=== PATIENT | male | born 1985 | race Caucasian/White ===

== ENCOUNTER 2016-07-28 12:50 | Outpatient (CLI) | payer MEDICAID | END 2016-07-28 14:48 | disposition home or self-care (01) | LOC: SLEEP 12:50 | PROVIDERS: ATTEND Family Medicine | DX: G47.33 Obstructive sleep apnea (adult) (pediatric) (principal) ==

== ENCOUNTER 2019-03-03 22:45 | Emergency (ER) | payer MEDICAID ==
[~2019-03-03] VITALS: Ht 177 cm; Wt 104.0 kg
[2019-03-04] MEDS ORDERED: RX-DOXYCYCLINE 100 MG (VIBRAMYCIN) TAB PPK#2 PO STA (00:28)
[2019-03-04] MEDS ORDERED: BENZONATATE 100 MG (TESSALON) CAPSULE PO SCH (00:30)
[2019-03-04] MEDS ORDERED: GUAI1TBM19 PO ×2 (00:30→00:56)
[2019-03-04] MEDS ORDERED: DOXY100C42 PO ×2 (00:30→00:56)
[2019-03-04] MEDS ORDERED: BENZ100C18 PO ×2 (00:30→00:56)
--- NOTE | 2019-03-04 00:30 | ED Cough/URI ---
General Chief Complaint: Cough/Cold/Flu Symptoms Stated Complaint: SOA Nursing Triage Note: PT PRESENTS TO THE ED AMBULATORY TO ROOM SEVEN C/O A COUGH AND EXERTIONAL SOB THAT ONSET 3-4 DAYS AGO. PT DENIES FEVER OR CHILLS, DENIES CHEST PAIN, STATES HE HAS BEEN VERY CONGESTED AND HAS HAD DIFFICULTY LYING FLAT WHILE SLEEPING AT NIGHT. Sepsis Screen: No Definite Risk Source: patient History of Present Illness Date Seen by Provider: Mar 03, 2019 Time Seen by Provider: 23:15 Initial Comments PT ARRIVES VIA POV FROM HOME C/O NON-PRODUCTIVE COUGH SINCE Monday02/25/19 NO CHEST PAIN C/O SLIGHT SHORTNESS OF BREATH NO FEVER/SWEATS/CHILLS C/O NASAL CONGESTION AND CLEAR DRAINAGE NO KNOWN SICK CONTACTS. HAS NOT TAKEN ANYTHING FOR SYMPTOMS PT IS NON-SMOKER NO HISTORY OF CHRONIC RESPIRATORY PROBLEMS WENT TO [facility] YESTERDAY, BUT LEFT SHORTLY AFTER ARRIVAL--"DIDN'T WANT TO WAIT" [facility] Allergies and Home Medications Allergies Coded Allergies: No Allergy Information Available (Unverified , 03/04/19) Home Medications Benzonatate 100 Mg Capsule, 1-2 TAB PO TID Prescribed by: BISHNU PORTILLO on 03/04/1953 Doxycycline Monohydrate 100 Mg Capsule, 100 MG PO BID Prescribed by: BISHNU PORTILLO on [birth year]/04/1953 Guaifenesin/Dextromethorphan 1 Each Tbmp.12hr, 1 EACH PO BID Prescribed by: BISHNU PORTILLO on [birth year]04/1953 Patient Home Medication List Home Medication List Reviewed: Yes Review of Systems Review of Systems Constitutional: no symptoms reported; No chills, No fever EENTM: see HPI, nose congestion; No throat pain Respiratory: see HPI, dyspnea on exertion; No orthopnea, No phlegm; short of breath; No stridor, No wheezing Cardiovascular: no symptoms reported; No chest pain, No edema Gastrointestinal: no symptoms reported Genitourinary: no symptoms reported Musculoskeletal: no symptoms reported Skin: no symptoms reported Psychiatric/Neurological: Pre-Existing Deficit (CEREBRAL PALSY WITH LEFT SIDE WEAKNESS, ALSO HAS 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) Past Kuslcsm-Ogmhyr-Bxbrru Hx Patient Social History Alcohol Use: Denies Use Recreational Drug Use: No Smoking Status: Never a Smoker 2nd Hand Smoke Exposure: No Recent Foreign Travel: No Contact w/Someone Who Travel: No Recent Infectious Disease Expo: No Recent Hopitalizations: No Physical Abuse: No Sexual Abuse: No Mistreated: No Fear: No Immunizations Up To Date Tetanus Booster (TDap): Unknown PED Vaccines UTD: Yes Past Medical History Surgeries: Yes (TRACHEOSTOMY D/T STREP--LATER REMOVAL; TECHNICIANS AND TRADES WORKERS SHUNT) Neurological, Tracheostomy Respiratory: Yes (2016--HAD STREP AND WAS HOSPITALIZED AND HAD TEMPORARY TRACH. 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 ) Tonsilitis Cancer: No Psychosocial: No Integumentary: No Blood Disorders: No Physical Exam Vital Signs - First Documented 03/03/19 23:04 Temp 36.7 Pulse 111 Resp 20 B/P (MAP) 181/85 (117) Pulse Ox 98 O2 Delivery Room Air Capillary Refill : Less Than 3 Seconds Height: '" Weight: lbs. oz. kg; 33.00 BMI Method: General Appearance: WD/WN, no apparent distress, obese, other (MALODOROUS) HEENT: other (MILD NASAL MUCOSAL EDEMA, CLEAR POST NASAL DRAINAGE. 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, no motor/sensory deficits, alert, oriented x 3 Skin: normal color, warm/dry Progress/Results/Core Measures Suspected Sepsis Recent Fever Within 48 Hours: No Infection Criteria Present: Suspected New Infection New/Unexplained Altered Menta: No Sepsis Screen: No Definite Risk SIRS Temperature: Pulse: 111 Respiratory Rate: 20 Blood Pressure 181 /85 Mean: 117 Results/Orders Micro Results Microbiology 03/03/19 Influenza Types A,B Antigen (JEANMARIE) - Final, Complete My Orders Orders - BISHNU PORTILLO DO Chest Pa/Lat (2 View) (03/03/19 23:16) Influenza A And B Antigens (03/03/19 23:16) Rx-Doxycycline Tablet (Rx-Vibramycin Tab (03/04/19 00:28) Benzonatate Capsule (Tessalon Perles) (03/04/19 00:30) Vital Signs/I&O 03/03/19 03/03/19 03/04/19 23:04 23:04 00:46 Temp 36.7 36.7 Pulse 111 80 Resp 20 20 B/P (MAP) 181/85 (117) 153/113 (117) Pulse Ox 98 98 O2 Delivery Room Air Room Air Room Air Capillary Refill : Less Than 3 Seconds Blood Pressure Mean: 117 POS Diagnostic Imaging Comments CXR--NO ACUTE PROCESS, PENDING RADIOLOGIST REVIEW Reviewed: Reviewed by Me Departure Impression Primary Impression: Bronchitis Disposition: 01 HOME, SELF-CARE Condition: Stable Departure-Patient Inst. Referrals: GIA VERAS DO (PCP) Primary Care Physician [facility] Patient Instructions: Acute Bronchitis, Adult (DC) Add. Discharge Instructions: LOTS OF CLEAR LIQUIDS TYLENOL AND MOTRIN NEEDED FOR PAIN OR FEVER FOLLOW UP WITH YOUR DR IN 2-3 DAYS IF NO BETTER All discharge instructions reviewed with patient and/or family. Voiced understanding. Scripts Guaifenesin/Dextromethorphan (Mucinex Dm ER 1,200-60 mg Tab) 1 Each Tbmp.12hr 1 EACH PO BID for 10 Days, #20 EA Prov: BISHNU PORTILLO DO 03/04/19 Benzonatate (TESSALON PERLES) 100 Mg Capsule 1-2 TAB PO TID for Cough, #30 CAP Prov: BISHNU PORTILLO DO 03/04/19 Doxycycline Monohydrate (Doxycycline Monohydrate) 100 Mg Capsule 100 MG PO BID, #20 CAP Prov: BISHNU PORTILLO DO 03/04/19 BISHNU PORTILLO DO Mar 04, 2019 00:30 POS
[2019-03-04 00:46] VITALS: BP 153/113
--- NOTE | 2019-03-04 07:12 | Diagnostic Imaging Report ---
INDICATION: Cough and fever. FINDINGS: Frontal and lateral views of the chest demonstrates lungs to be clear. Heart size and vascularity are normal. There are no pleural effusions. Some calcifications are present consistent with a tract from an old ventriculoperitoneal shunt. IMPRESSION: Negative chest. Dictated by: Dictated on workstation # [id number]
== END 2019-03-04 00:46 | disposition home or self-care (01) ==
LOC: EDUNIT# 22:45 → ER 22:46
DX: J40 Bronchitis, not specified as acute or chronic (principal); I10 Essential (primary) hypertension; E78.00 Pure hypercholesterolemia, unspecified; G80.9 Cerebral palsy, unspecified; Z93.0 Tracheostomy status
CPT/HCPCS: 71046; 87804

== ENCOUNTER 2019-09-19 01:40 | Emergency (ER) | payer MEDICAID ==
[~2019-09-19] VITALS: Ht 170 cm; Wt 124.8 kg
[~2019-09-19 01:40] MED LIST: BENZ100C18 PO; DOXY100C42 PO; GUAI1TBM19 PO
--- OUTSIDE RECORDS SUMMARY | 2019-09-19 01:50 | XMS REPORT ---
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 [employer] [facility] [employer] [facility] [address] Address [address] [address] Care Team Providers Care Telecommunications Network Planner Name Role Phone LOWELL, GIA V Unavailable SOWMYA DAN MD Unavailable SWAPNA MANZANO Unavailable Lowell, Gia Unavailable Unavailable Lowell, Gia V Unavailable Unavailable Motley, Albino PCP Lowell, Gia V Unavailable Unavailable Unavailable Unavailable LOWELL, GIA V PCP Motley, Albino Unavailable Unavailable Lowell, Gia V Unavailable Unavailable Motley, Albino Unavailable Unavailable LINDSEY DO, BISHNU K Unavailable Unavailable LOWELL DO, GIA V Unavailable Unavailable Unavailable Unavailable Unavailable Unavailable Unavailable Unavailable Unavailable Unavailable Unavailable Unavailable Allergies Normalized Allergy Reported Date of Reaction(s) Care Provider Facility Allergy Type classification allergen Allergy Onset no information Unclassified No Known Drug no information GIA LOWELL [facility] (1 source.) [facility] ([address]) Allergy to Unclassified no information no information GIA ALONZO LER [place] [facility] ([phone] Bhavya source.) [facility] ([address]) Medications Medication Ingredient Drug Dose Dates Status Sig Sig Care Class(es) (Normalized) (Original) Provid er acetaminoph Acetaminoph no 325 mg no take 1 Tylenol 325 no en 325 mg en information informat capsule by mg oral n jayme oral Translation ion mouth three capsule sara e capsule (1 s: [ times daily 1 capsule by source.) Acetaminoph oral route 3 en 325 MG times a day Oral Capsule] acetaminoph Acetaminoph Histamine-1 06-01-19 Complete take 2 Tyl enol PM no en 500 mg / en / Receptor 17 d tablets by Extra nam e diphenhydrA diphenhydrA Antagonist mouth once Strength MINE MINE daily at 25-500 mg hydrochlori Translation bedtime as oral tablet de 25 mg s: [ needed 06/01/2016 oral tablet Acetaminoph take 2 (1 source.) en 500 MG / tablets by Diphenhydra oral route mine once daily Hydrochlori at bedtime de 25 MG as needed Oral Tablet] acetaminoph Acetaminoph Opioid 08-23-19 Complete take 1 oxycodon e-ac no en 325 mg / en / Agonist 19 d tablet by etaminophen name oxyCODONE oxyCODONE mouth every 5-325 mg hydrochlori Translation four hours oral tablet de 5 mg s: [ as needed 08/22/2018 oral tablet Acetaminoph take 1 (1 source.) en 325 MG / tablet by Oxycodone oral route Hydrochlori every 4 de 5 MG hours as Oral needed Tablet] aspirin 81 Aspirin Platelet 81 mg 10-20-19 Complete take 1 Aspi r-81 81 no mg delayed Translation Aggregation 11 d tablet by mg or al name release s: [ Inhibitor, mouth once tablet,delay oral tablet Aspirin 81 Nonsteroida daily ed release (1 source.) MG Delayed l (DR/EC) Release Anti-inflam 10/19/2010 Oral matory Drug take 1 Tablet] tablet (81 mg) by oral route once daily atenolol 25 Atenolol beta-Adrene 25 mg 06-30-19 no take 1 a tenolol 25 no mg oral Translation rgic 19 informat tablet by mg oral nam e tablet (1 s: [ Dylon ion mouth once tablet source.) Atenolol 25 daily 06/29/2018 MG Oral TAKE 1 Tablet] TABLET BY MOUTH ONCE DAILY baclofen 10 Baclofen gamma-Amino 10 mg 04-25-20 no take 1 b aclofen 10 no mg oral Translation butyric 18 informat tablet by mg oral n jayme tablet (3 s: [ Acid-ergic ion mouth three tablet sources.) Baclofen 10 Agonist times daily 04/25/2018 MG Oral take 1 Tablet] tablet (10 mg) by oral route 3 times per day for 90 days 5 mg 08-08-2011 Completed take baclofen no name - 0.5 10 mg 09-08-2011 tablet oral by tablet mouth 08/08/2011 three times 2 TAKE daily, ONE-HALF then TABLET take 1 BY MOUTH tablet THREE by TIMES mouth DAILY three FOR 3 times DAYS daily THEN ONE TABLET THREE TIMES DAILY benzonatate benzonatate Non-narcoti 03-04-20 Complete no Michael zonatate no 100 mg oral c 19 - d information Discontinued name capsule (2 Antitussive 03-04-20 1-2 ORAL sources.) 19 - Three Times 03-04-20 A Day for 19 March 04, 2019 12:56am (One-Time) 12 hr buPROPion Aminoketone 100 mg 08-23-19 Complete take 1 Wel lbutrin no buPROPion Translation 19 d tablet by SR 100 mg n jayme hydrochlori s: [ 12 HR mouth three oral tablet de 100 mg Bupropion times daily extended extended Hydrochlori release release de 100 MG 08/22/2018 oral tablet Extended take 1 (1 source.) Release tablet by Oral oral route 3 Tablet] times a day cloNIDine cloNIDine Central 0.1 mg 10-13-19 Complete no clon idine no hydrochlori Translation alpha-2 10 d information HCl 0. 1 mg name de 0.1 mg s: [ Adrenergic oral tablet oral tablet Clonidine Agonist 10/12/2009 (1 source.) Hydrochlori take 1 de 0.1 MG tablet by Oral oral route Tablet] 1X in clinic office cyclobenzap cyclobenzap Muscle 10 mg 02-21-20 Complete take 1 cyclobenzapr no rine rine Relaxant 15 - d tablet by ine 10 mg name hydrochlori Translation 06-01-19 mouth twice oral tablet de 10 mg s: [ 17 daily 02/20/2015 oral tablet Cyclobenzap 06/01/2016 (3 rine take 1 sources.) hydrochlori tablet (10 de 10 MG mg) by oral Oral route 2 Tablet] times per day for 30 days 10 mg 10-26-2010 no take 1 cycloben no name information tablet zaprine by 10 mg mouth oral twice tablet daily take 1 tablet (10 mg) by oral route 2 times per day 12 hr Dextrometho Uncompetiti 03-04-20 Complete no Guaifene sin/ no dextrometho rphan / ve 19 - d information Dextromethor name rphan guaiFENesin N-methyl-D- 03-14-20 france hydrobromid aspartate 19 Discontinued e 60 mg / Receptor 1 ORAL Twice guaiFENesin Antagonist, A Day 20 10 1200 mg Sigma-1 March extended Agonist 2018 release 12:56am oral tablet March (2 2018 sources.) diazePAM 2 diazePAM Benzodiazep 2 mg 11-21-19 Complete take 1-2 Valium 2 mg no mg oral Translation ine 12 - d tablets by oral tablet name tablet (1 s: [ 01-04-20 mouth every 11/21/2011 source.) Diazepam 2 12 eight hours 01/04/2012 1-2 MG Oral as needed tabs po q 8 Tablet] for pain hrs/PRN pain diclofenac Diclofenac Nonsteroida 75 mg 12-15-19 Complete take 1 diclofenac no sodium 75 Translation l 13 - d tablet by sodium 75 mg name mg delayed s: [ Anti-inflam 03-19-20 mouth twice oral release Diclofenac matory Drug 13 daily tablet,de lay oral tablet 35 MG Oral ed release (5 Capsule, (DR/EC) sources.) diclofenac 12/14/2012 sodium 75 03/19/2013 mg oral take 1 tablet,lee ann tablet (75 yed release mg) by oral (DR/EC), route 2 Diclofenac times per Sodium 75 day MG Delayed Release Oral Tablet, Pennsaid 1.5 % topical drops, Diclofenac Sodium 15 MG/ML Topical Solution, Voltaren 1 % topical gel, Diclofenac Sodium 0.01 MG/MG Topical Gel] 4 % 11-08-2011 Completed apply Voltaren no name - 4 g 1 % 03-07-2012 topica topical lly gel four times 2 daily 2 apply 4 gram to the affected area(s) by topical route 4 times per day for 30 days 40 drop(s) 03-19-2013 Completed apply Pennsaid no name 40 1.5 % drop(s topical ) drops topica 03/19/20 lly 13 apply four 40 drops times to each daily knee by topical route 4 times per day 35 mg 08-22-2018 no take 1 Zorvolex no name information capsul 35 mg e by oral mouth capsule three take 1 times capsule daily (35 mg) by oral route 3 times per day doxycycline Doxycycline Tetracyclin 03-04-20 Complete no Dox ycycline no monohydrate e-class 19 - d information Monohydrate name 100 mg oral Drug 03-04-20 Discontinued capsule (2 19 - 100 ORAL sources.) 03-04-20 Twice A Day March 04, 2019 12:56am (One-Time) no Fish Oils no 1000 10-13-19 Complete take 1 Fish Oil no information information mg 10 d capsule by 1,000 mg name (1 source.) mouth once oral capsule daily 10/12/2009 take 1 capsule by oral route QD , keep refrigerated furosemide Furosemide Loop 80 mg 10-03-19 no take 1 furos emide no 80 mg oral Translation Diuretic 19 - informat tablet by 80 mg oral name tablet (2 s: [ 12-02-19 ion mouth once tablet sources.) Furosemide 19 daily as 10/02/2018 80 MG Oral needed 12/01/2018 Tablet, TAKE 1 Furosemide TABLET BY 80 MG Oral MOUTH ONCE Tablet] DAILY NEEDED 80 mg 08-22-2018 Completed take 1 Lasix 80 no name - tablet mg oral 09-06-2018 by tablet mouth once 9 daily 09/06/2018 as take 1 needed tablet (80 mg) by oral route once daily prn gabapentin gabapentin Anti-epilep 100 mg 03-19-20 Complete take 1 gabapentin no 100 mg oral Translation tic Agent 13 - d capsule by 100 m g oral name capsule (1 s: [ 04-18-20 mouth twice capsule source.) gabapentin 13 daily 03/19/2013 100 MG Oral 04/18/2013 Capsule] take 1 capsule by oral route 2 times a day for 30 days hydroCHLORO hydroCHLORO Thiazide 10-03-19 Complete take 1 Zestor etic no thiazide 25 thiazide / Diuretic, 10 - d tablet by 20-25 m g name mg / Lisinopril Angiotensin 10-13-19 mouth once oral tab let lisinopril Translation Converting 10 daily 10/02/2009 20 mg oral s: [ Enzyme 10/12/2009 tablet (1 Hydrochloro Inhibitor take 1 source.) thiazide 25 tablet by MG / oral route Lisinopril once daily 20 MG Oral for 60 days Tablet] hydrOXYzine hydrOXYzine Antihistami 75 mg 08-17-19 Complete take 3 hydroxyzine no hydrochlori Translation ne 19 - d tablets by HCl 25 mg name de 25 mg s: [ 08-23-19 mouth at oral tablet oral tablet Hydroxyzine 19 bedtime 08/16/2018 (1 source.) Hydrochlori 08/22/2018 de 25 MG TAKE 3 Oral TABLETS BY Tablet] MOUTH AT BEDTIME ibuprofen Ibuprofen Nonsteroida 800 mg 02-02-20 Complete take 1 ibuprofen no 800 mg oral Translation l 11 d tablet by 800 mg ora l name tablet (1 s: [ Anti-inflam mouth twice tablet source.) Ibuprofen matory Drug daily at 02/01/2011 800 MG Oral mealtime take 1 Tablet] tablet (800 mg) by oral route 2 times per day with food lisinopril Lisinopril Angiotensin 20 mg 06-30-19 no take 1 lisinopril no 20 mg oral Translation Converting 19 informat tablet by 20 m g oral name tablet (2 s: [ Enzyme ion mouth twice tablet sources.) Lisinopril Inhibitor daily 06/29/2018 20 MG Oral TAKE 1 Tablet] TABLET BY MOUTH TWICE DAILY 20 mg 10-18-2009 Completed take 1 lisinopr no name - tablet il 20 mg 10-19-2010 by oral mouth tablet every twelve 0 hours 1 take 1 tablet by oral route every 12 hours lovastatin Lovastatin HMG-CoA 20 mg 07-05-19 no take 1 lova statin no 20 mg oral Translation Reductase 19 informat tablet by 20 mg oral name tablet (1 s: [ Inhibitor ion mouth once tablet source.) Lovastatin daily 07/04/2018 20 MG Oral TAKE 1 Tablet] TABLET BY MOUTH ONCE DAILY meloxicam meloxicam Nonsteroida 15 mg 07-10-19 Complete take 1 meloxicam 15 no 15 mg oral Translation l 13 - d tablet by mg oral na me tablet (1 s: [ Anti-inflam 09-22-19 mouth once tablet source.) meloxicam matory Drug 13 daily 07/09/2012 15 MG Oral 09/21/2012 Tablet] take 1 tablet (15 mg) by oral route daily for 30 days methocarbam Methocarbam Muscle 750 mg 09-22-19 Complete no m ethocarbamo no ol 750 mg ol Relaxant 13 - d information l 750 mg na me oral tablet Translation 01-20-20 oral tablet (1 source.) s: [ 13 09/21/2012 Methocarbam 01/19/2013 ol 750 MG Oral Tablet] no Multivitami no 10-13-19 Complete take 1 Multivitamin no information n Oral information 10 d capsule by Oral Cap marisa name (1 source.) Capsule mouth once 10/12/2009 daily take 1 capsule by oral route once daily naproxen Naproxen Nonsteroida 550 mg 02-01-20 Complete take 1 na proxen no sodium 550 Translation l 11 d tablet by sodium 550 name mg oral s: [ Anti-inflam mouth once mg oral tablet (1 Naproxen matory Drug daily tablet source.) sodium 550 01/31/2011 MG Oral take 1 Tablet] tablet (550 mg) by oral route daily omeprazole Omeprazole Proton Pump 20 mg 07-26-19 Complete take 1 omeprazole no 20 mg Translation Inhibitor 18 - d capsule by 20 mg oral name delayed s: [ 08-23-19 mouth once capsule,lee ann release Omeprazole 19 daily before yed oral 20 MG mealtime release(DR/E capsule (1 Delayed C) 07/25/2017 source.) Release 08/22/2018 Oral take 1 Capsule] capsule (20 mg) by oral route once daily before a meal for 30 days orphenadrin Orphenadrin Muscle 100 mg 06-27-19 Complete take 1 N orflex 100 no e citrate e Relaxant 13 - d tablet by mg 06/27/2012 name 100 mg oral 07-06-19 mouth twice 07/05/2012 1 tablet (1 13 daily tab po BID source.) PARoxetine PARoxetine Serotonin 40 mg 06-30-19 no take 2 pa roxetine no hydrochlori Translation Reuptake 19 informat tablets by HCl 20 mg name de 20 mg s: [ Inhibitor ion mouth once oral table t oral tablet Paroxetine daily 06/29/2018 (1 source.) Hydrochlori TAKE 2 de 20 MG TABLETS BY Oral MOUTH ONCE Tablet] DAILY predniSONE predniSONE no 60 mg 03-14-20 Complete take 3 pre dnisone no 20 mg oral Translation information 18 - d tablets by 20 m g oral name tablet (1 s: [ 04-05-20 mouth once tablet source.) Prednisone 18 daily, then 03/14/2018 20 MG Oral take 2 04/05/2018 Tablet] tablets by Take 3 mouth once tablets daily, then daily x 2 take 1 days, then 2 tablet by tablets mouth once daily x 5 daily, then days, 1 1/2 take 1 tablets tablet by daily x 5 mouth once days, 1 daily, then tablet daily take 0.5 x 5 days, tablet by 1/2 tablet mouth once daily x 5 daily days tiZANidine tiZANidine Central 4 mg 04-19-20 Complete no ti zanidine 4 no 4 mg oral Translation alpha-2 12 - d information mg oral name capsule (1 s: [ Adrenergic 06-27-19 capsule source.) tizanidine Agonist 13 04/19/2012 4 MG Oral 06/27/2012 Capsule] take 1 capsule (4 mg) by oral route for 30 days traMADol traMADol Opioid 100 mg 09-29-19 no take 2 tramadol 50 no hydrochlori Translation Agonist 19 - informat tablets by mg or al name de 50 mg s: [ 10-29-19 ion mouth three tablet oral tablet tramadol 19 times daily 09/28/2018 (2 hydrochlori 10/28/2018 sources.) de 50 MG take 2 Oral tablets by Tablet] oral route 3 times a day for 30 days 100 mg 06-01-2016 Completed take 2 tramadol no name tablet 50 mg s by oral mouth tablet three 06/01/2016 times take 2 daily tablets by oral route 3 times a day Problems Active Problems Problem Normalized Date Last Normalized Normalized Provider Fa cility Classification Problem(s) Recorded Problem Problem Sta tus Duration 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 [address] Physicians degenerative Group (84110) nervous system (Work Phone: conditions ( ) source.) Other nervous Carpal tunnel [facility] system syndrome [address] Physicians disorders (4 Group (74188) sources.) ( ) Paralysis (18 Cerebral palsy Chronic Active Albino [facility] sources.) Translations: [address] Physicians [ Cerebral Group (89559) Palsy, (Work Phone: Infantile ) cerebral palsy; hemiplegic, Infantile cerebral palsy; diplegic] Unclassified Contracture no information Active Albino [employer] (1 source.) deformities [address] Physicians Group (44834) ( ) Other acquired Contract[employer] of Chronic Active Albino Motley [facility] deformities joint, lower [address] Physicians (16 sources.) leg Group (10665) ( ) Other acquired [employer] of Chronic Active [facility] (1 joint, site [address] Physicians source.) unspecified Group (08862) ( ) Mood disorders Depressive Chronic Active Albino Motley [facility] (2 sources.) disorder, not [address] Physicians elsewhere Group (79365) classified (Work Phone: Translations: ) [ Depression, Depression, Depression] Residual Edema Episodic Active Albino Motley [facility] codes; [address] Physicians unclassified Group (49970) (1 source.) ( ) Disorders of Hypercholester Chronic Active [facility] lipid olemia [address] Physicians metabolism (2 Translations: Group (45287) sources.) [ (Work Phone: Hypercholester ) olemia, Hypercholester olemia, Pure hypercholester olemia] Residual Insomnia Episodic Active Albino Mot[facility] codes; [address] Physicians unclassified Group (78808) (1 source.) ( ) Spondylosis; 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 [address] Physicians disc without Group (59726) disorders; myelopathy (Work Phone: other back ) problems (5 sources.) Other Morbid obesity Chronic Active Albino Motley [facility] nutritional; [address] Physicians endocrine; and Group (75311) metabolic (Work Phone: disorders ( ) sources.) Other Obesity, Chronic Active Albino Motley [facility] nutritional; unspecified [address] Physicians endocrine; and Group (31581) metabolic (Work Phone: disorders ( ) source.) Residual Obstructive Chronic Active GIA ETIENNE [facility] V ia codes; sleep apnea DO Bhavya unclassified (adult) Hospital - (6 sources.) (pediatric) [place] ([address]339) Anxiety Other anxiety Chronic Active Albino Motley [facility] disorders (1 states [address] Physicians source.) Group (39181) ( ) Essential Unspecified Chronic [facility] hypertension essential [address] Physicians (9 sources.) hypertension Group (05092) Translations: (Work Phone: [ ) Hypertension, Hypertension, Hypertension] 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[address] Physicians disorders (1 idiopathic Group (39797) source.) peripheral (Work Phone: neuropathy ) Past or Other Problems Problem Normalized Date Last Normalized Normalized Provider Fa cility Classification Problem(s) Recorded Problem Problem Sta tus Duration Abdominal pain Abdominal Episodic Completed [facility] [employer] [facility] (2 sources.) pain, other [address] Physicians specified site Group (86080) ( ) Other nervous Abnormality of Episodic Completed [facility] gait [address] Physicians disorders (16 Group (56731) sources.) ( ) Other Achilles Episodic Com[facility] [place] [address] Physicians tissue disease tendinitis Group (30303) (7 sources.) ( ) Malaise and Other malaise Episodic Com[facility] fatigue (1 and fatigue [address] Physicians source.) Group (87792) ( ) Unclassified [id number] no information Completed [facility] [employer] (1 source.) [id number] [address] Physicians [id number] Group (74275) llness_name_[id number] ( ) Spondylosis; Thoracic or Episodic Completed Albino Motley [employer] intervertebral lumbosacral [address] Physicians disc neuritis or Group (40342) disorders; radiculitis, (Work Phone: other back unspecified ) problems (1 source.) Other eye Unspecified Episodic Completed Albino Motley Apparent disorders (1 [place] [address] Physicians source.) eye movements Group (32161) ( ) Procedures Procedure Normalized Procedure Procedure Result Performer Facility Date 09-18-2009 Blood count complete no information no name [facility] auto&auto difrntl wbc [facility] (57929) ( ) 02-17-2011 Botulinum Toxin no information no name [employer] (Botox), Type A (per Physicians Group unit) (63122) ( ) 02-17-2011 Chemodenervation no information no name Apparent [facility] (56509) ( ) 09-18-2009 Collection venous no information no name Stir blood venipuncture [facility] Group (98231) ( ) 12-14-2012 Comprehensive no information no name [facility] metabolic panel [facility] (67316) ( ) 09-18-2009 Comprehensive no information no name [facility] metabolic panel [facility] (79952) ( ) 06-01-2016 Ct abdomen & pelvis no information no name [facility] w/o contrst 1/> body [facility] re (95220) ( ) 03-03-2019 Diagnostic radiography no information no name [place] [facility] B[facility]ya of chest, [facility] (65776) and lateral 09-18-2009 Ecg routine ecg no information no name [facility] w/least 12 lds w/i&r [facility] Group (32480) ( ) 09-18-2009 Lipid panel no information no name [facility] (16495) ( ) 11-29-2012 Needle emg ea no information no name [facility] extremity w/paraspinl [facility] area limited (84463) ( ) 02-17-2011 Needle emg guid no information no name [facility] w/chemodenervation [facility] (55736) ( ) 11-29-2012 Nerve conduction no information no name [facility] studies - studies [facility] Group (32890) ( ) Immunizations Normalized Immunization Date Notes Care Provider Facili ty Immunization no information 03-04-2019 no information GIA ETIENNE [address] [facility] (85023) Results Test Name Value Interpretation Reference Range Date Time Fa cility (Normalized) (Normalized) (Medline Reference) laboratory on 2019-04-25 Calcium 9.8 mg/dL (N) 8.5 - 10.2 mg/dL Critical access hospital [Mass/Vol] [facility] (95663) Chloride 103 mmol/L (N) 95 - 106 mmol/L [facility] [Moles/Vol] [facility] (85185) CO2 [Moles/Vol] 23 mmol/L (N) 23 - 29 mmol/L [facility] (26003) Creatinine 0.92 mg/dL (N) [facility] [Mass/Vol] [facility] (02601) GFR/1.73 sq M 127 (N) 90 - 120 [facility] predicted among mL/min/{1.73_m2} mL/min/{1.73_m2} Center o f [facility] blacks MDRD [facility] (S/P/Bld) [Vol (92276) rate/Area] GFR/1.73 sq 110 (N) 90 - 120 [facility] Heal th M.predicted MDRD mL/min/{1.73_m2} mL/min/{1.73_m2} [facility] (S/P/Bld) [Vol [facility] rate/Area] (93936) Glucose 85 mg/dL (N) 60 - 125 mg/dL [facility] [Mass/Vol] [facility] (82781) Potassium 4.3 mmol/L (N) 3.7 - 5.2 mmol/L Critical access hospital [Moles/Vol] [facility] (92654) Sodium 136 mmol/L (N) 135 - 145 mmol/L [facility] [Moles/Vol] [facility] (85926) Urea nitrogen 13 mg/dL (N) 7 - 20 mg/dL [facility] [Mass/Vol] [facility] (48885) Urea NOT APPLICABLE (no code) [facility] nitrogen/Creatin [facility] [Mass ratio] [facility] () laboratory on 2019-01-21 Albumin 4.3 g/dL (N) 3.4 - 5.4 g/dL [facility] [Mass/Vol] [facility] (54090) Albumin/Globulin 1.7 {ratio} (N) 1 - 2.5 {ratio} On license of [facility] [Mass ratio] [facility] (07912) ALP [Catalytic 77 U/L (N) 44 - 147 U/L [facility] Health activity/Vol] [facility] (22475) ALT [Catalytic 21 U/L (N) 4 - 40 U/L [facility] ealt activity/Vol] [facility] (92336) AST [Catalytic 20 U/L (N) 10 - 34 U/L [facility] Health activity/Vol] [facility] (86788) Basophils (Bld) 0.05 10*3/uL (N) 0 - 0.3 10*3/uL On license of [facility] [#/Vol] [facility] (12606) Basophils/100 0.6 % (N) 0.5 - 1 % [facility] He alth WBC (Bld) [facility] (99492) Bilirubin 0.6 mg/dL (N) 0.1 - 1.2 mg/dL [facility] [Mass/Vol] [facility] (23771) Calcium 9.6 mg/dL (N) 8.5 - 10.2 mg/dL Critical access hospital [Mass/Vol] [facility] (25229) Chloride 99 mmol/L (N) 95 - 106 mmol/L [facility] [Moles/Vol] [facility] (44741) Cholesterol 192 mg/dL (N) 180 - 200 mg/dL [facility] [Mass/Vol] [facility] (54422) Cholesterol in 32 mg/dL (L) [facility] h HDL [Mass/Vol] [facility] (60827) Cholesterol in 137 mg/dL (H) 0 - 100 mg/dL Critical access hospital LDL [Mass/Vol] [facility] (99678) Cholesterol non 160 mg/dL (H) [facility] HDL [Mass/Vol] [facility] (40280) Cholesterol.tota 6.0 {ratio} (H) [facility] He lt l/Cholesterol in [facility] HDL [Mass ratio] [facility] (47151) CO2 [Moles/Vol] 18 mmol/L (L) 23 - 29 mmol/L [facility] (70247) Creatinine 0.85 mg/dL (N) Formerly [facility] h [Mass/Vol] [facility] (87033) Eosinophils 0.126 10*3/uL (N) 0.05 - 0.5 [facility] He alth (Bld) [#/Vol] 10*3/uL [facility] (46144) Eosinophils/100 1.5 % (N) 1 - 4 % [facility] WBC (Bld) [facility] (52795) Erythrocyte 12.9 % (N) 11.6 - 14.6 % [facility] ealth distribution [facility] width (RBC) [facility] [Ratio] (00855) GFR/1.73 sq M 135 (N) 90 - 120 [facility] predicted among mL/min/{1.73_m2} mL/min/{1.73_m2} [place] o f [facility] blacks MDRD [facility] (S/P/Bld) [Vol (41620) rate/Area] GFR/1.73 sq 116 (N) 90 - 120 [facility] th M.predicted MDRD mL/min/{1.73_m2} mL/min/{1.73_m2} [facility] (S/P/Bld) [Vol [facility] rate/Area] (68619) Globulin (S) 2.6 g/dL (N) 2 - 3.5 g/dL [facility] ealth [Mass/Vol] [facility] (83109) Glucose 98 mg/dL (N) 60 - 125 mg/dL [facility] [Mass/Vol] [facility] (36910) Hematocrit (Bld) 49.4 % (N) 36.1 - 50.3 % [facility] [Volume [facility] (51352) Hemoglobin (Bld) 16.4 g/dL (N) 12.1 - 17.2 g/dL [facility] [Mass/Vol] [facility] (56566) Lymphocytes 1.579 10*3/uL (N) 0.9 - 2.9 [facility] He alth (Bld) [#/Vol] 10*3/uL [facility] (57507) Lymphocytes/100 18.8 % (N) 20 - 40 % [facility] WBC (Bld) [facility] (99475) MCH (RBC) 28.9 pg (N) 27 - 31 [facility] [Entitic mass] [facility] (00517) MCHC (RBC) 33.2 g/dL (N) 32 - 36 g/dL [facility] He alth [Mass/Vol] [facility] (94404) MCV (RBC) 87.1 fL (N) 80 - 100 fL [facility] Hea lt [Entitic vol] [facility] (24855) Monocytes (Bld) 0.571 10*3/uL (N) 0.3 - 0.9 [facility] Health [#/Vol] 10*3/uL [facility] (39175) Monocytes/100 6.8 % (N) 2 - 8 % [facility] WBC (Bld) [facility] (94655) Neutrophils 6.073 10*3/uL (N) 1.7 - 7 10*3/uL [facility] ([facility]ld[facility] [#/Vol] [facility] (19425) Neutrophils/100 72.3 % (N) 40 - 60 % [facility] Health WBC (Bld) [facility] (66418) Platelet mean 11.7 fL (N) 7.2 - 11.7 fL [facility] volume (Bld) [facility] [Entitic vol] [facility] (55405) Platelets (Bld) 281 10*3/uL (N) 150 - 450 [facility] [#/Vol] 10*3/uL [facility] (27539) Potassium 4.8 mmol/L (N) 3.7 - 5.2 mmol/L [facility] [Moles/Vol] [facility] (29852) Protein 6.9 g/dL (N) 6.4 - 8.3 g/dL [facility] [Mass/Vol] [facility] (52025) RBC (Bld) 5.67 10*6/uL (N) 4.2 - 6.1 [facility]ly [facility] lt [#/Vol] 10*6/uL [facility] (87155) Sodium 140 mmol/L (N) 135 - 145 mmol/L [facility] [Moles/Vol] [facility] (45700) Triglyceride 111 mg/dL (N) 0 - 150 mg/dL [facility] [Mass/Vol] [facility] (96591) TSH Qn 0.78 m[IU]/L (N) 0.4 - 4 m[IU]/L [facility] (27127) Urea nitrogen 16 mg/dL (N) 7 - 20 mg/dL [facility] [Mass/Vol] [facility] (43354) Urea NOT APPLICABLE (no code) Formerly [facility] h nitrogen/Creatin [facility] (30377) WBC (Bld) 8.4 10*3/uL (N) 3.5 - 10.5 [facility] [#/Vol] 10*3/uL [facility] (42209) other on 2013-02-22 GFR/1.73 sq mL/min/{1.73_m2} (no code) 90 - 120 02-22-2013 Lab [facility].predicted MDRD mL/min/{1.73_m2} 14:50-0400 [facility] (S/P/Bld) [Vol (44220) (Work rate/Area] ) no information 25 (no code) 02-22-2013 [facility] 14:500 [facility] ([id number]) ( ) no information 118 (no code) 02-22-2013 [facility] 14:50 [facility] (55355) ( ) no information 143 (no code) 02-22-2013 [facility] 14:50 [facility] (75905) ( ) no information >60 (no code) 02-22-2013 [facility] 14:50 [facility] (97164) ( ) metabolic panel on 2013-02-22 Albumin 4.60 g/dL (no code) 3.4 - 5.4 g/dL 02-22-2013 [facility] [Mass/Vol] 14:50 [facility] ([id number]) ( ) ALP [Catalytic 90.0 U/L (no code) 44 - 147 U/L 02-22-2013 [facility] activity/Vol] 14:500 [facility] (96992) ( ) ALT [Catalytic 43.0 U/L (no code) 4 - 40 U/L 02-22-2013 [facility] activity/Vol] 14:50-0400 [facility] ([id number]) ( ) AST [Catalytic 25.0 U/L (no code) 10 - 34 U/L 02-22-2013 [facility] activity/Vol] 14:500400 [facility] (59621) ( ) Bilirubin 0.80 mg/dL (no code) 0.1 - 1.2 mg/dL 02-22-2013 [facility] [Mass/Vol] 14:50 [facility] ([id number]) ( ) Calcium 9.90 mg/dL (no code) 8.5 - 10.2 mg/dL 02-22-2013 [facility] [Mass/Vol] 14:50-0400 [facility] (65099) ( ) Chloride 102.0 mmol/L (no code) 95 - 106 mmol/L 02-22-2013 [facility] [Moles/Vol] 14:50-0400 [facility] (56232) ( ) CO2 [Moles/Vol] 24.0 mmol/L (no code) 23 - 29 mmol/L 02-22-2013 [facility] 14:50-0400 [facility] (45678) ( ) Creatinine 0.80 mg/dL (no code) 02-22-2013 [facility] [Mass/Vol] 14:50-0400 [facility] ([id number]) ( ) Glucose 90.0 mg/dL (no code) 60 - 125 mg/dL 02-22-2013 [facility] [Mass/Vol] 14:50-0400 [facility] (67671) ( ) Potassium 3.80 mmol/L (no code) 3.7 - 5.2 mmol/L 02-22-2013 [facility] [Moles/Vol] 14:50-0400 [facility] ([id number]) ( ) Protein 8.10 g/dL (no code) 6.4 - 8.3 g/dL 02-22-2013 [facility] [Mass/Vol] 14:50-0400 [facility] ([id number]) ( ) Sodium 136.0 mmol/L (no code) 135 - 145 mmol/L 02-22-2013 [facility] [Moles/Vol] 14:50-0400 [facility] (59986) ( ) Urea nitrogen 12.0 mg/dL (no code) 7 - 20 mg/dL 02-22-2013 [facility] [Mass/Vol] 14:50-0400 [facility] (56226) ( ) Vital Signs Vital Sign Value Interpretation Reference Date [facility] (Normalized) (Normalized) Range BMI (Body Mass 46.4 kg/m2 (no code) 15 - 25 kg/m2 10-23-2018 Aa ditya Motley [facility] Index) 12:00-0400 [address] [facility] ([id number]) ( ) BMI (Body Mass 47.94 kg/m2 (no code) 15 - 25 kg/m2 08-22-2018 A yamilet Motley [facility] Index) 13:22-0400 [address] [facility] ([id number]) ( ) BMI (Body Mass 40.72 kg/m2 (no code) 15 - 25 kg/m2 06-01-2016 A yamilet Motley [facility] Index) 15:40-0500 [address] [facility] (61412) ( ) BMI (Body Mass 42.91 kg/m2 (no code) 15 - 25 kg/m2 03-19-2013 A yamilet Motley [facility] Index) 16:13-0500 [address] [facility] (01006) ( ) BMI (Body Mass 44.01 kg/m2 (no code) 15 - 25 kg/m2 11-27-2012 A yamilet Motley [facility] Index) 10:37-0400 [address] [facility] ([id number]) ( ) BMI (Body Mass 44.48 kg/m2 (no code) 15 - 25 kg/m2 09-21-2012 A yamilet Motley [facility] Index) 09:37-0400 [address] [facility] (81272) ( ) BMI (Body Mass 49.26 kg/m2 (no code) 15 - 25 kg/m2 04-10-2012 A yamilet Motley [facility] Index) 11:47-0500 [address] [facility] (65248) ( ) BMI (Body Mass 50.86 kg/m2 (no code) 15 - 25 kg/m2 01-10-2012 A yamilet Motley [facility] Index) 09:54-0400 [address] [facility] (17588) ( ) BMI (Body Mass 50.46 kg/m2 (no code) 15 - 25 kg/m2 11-08-2011 A yamilet Motley [facility] Index) 09:55-0400 [address] [facility] (10821) ( ) BMI (Body Mass 50.46 kg/m2 (no code) 15 - 25 kg/m2 07-08-2011 A yamilet Motley [facility] Index) 11:07-0500 [address] [facility] (44179) ( ) BMI (Body Mass 49.26 kg/m2 (no code) 15 - 25 kg/m2 05-27-2011 A yamilet Motley [facility] Index) 10:01-0500 [address] [facility] ([id number]) ( ) Body 98.2 [degF] (no code) 97.8 - 99.0 10-23-2018 Albino Ve rma [facility] Temperature [degF] 12:00-0400 [address] [facility] ([id number]) ( ) Body 97.6 [degF] (no code) 97.8 - 99.0 08-22-2018 Alb[facility] Ve [facility]ma [facility] Temperature [degF] 13:22-0400 [address] [facility] ([id number]) ( ) Body 97 [degF] (no code) 97.8 - 99.0 06-01-2016 Albino Verm a [facility] Temperature [degF] 15:40-0500 [address] [facility] ([id number]) ( ) Body 98.7 [degF] (no code) 97.8 - 99.0 03-19-2013 Alb[facility] Ve [facility]ma [facility] Temperature [degF] 16:130500 [address] [facility] (39868) ( ) Body 97.6 [degF] (no code) 97.8 - 99.0 12-14-2012 Alb[facility]ma [facility] Temperature [degF] 11:23-0400 [address] [facility] ([id number]) ( ) Body 98.1 [degF] (no code) 97.8 - 99.0 11-27-2012 Alb[facility] Ve [facility]ma [facility] Temperature [degF] 10:37-0400 [address] [facility] (94973) ( ) Body 97.1 [degF] (no code) 97.8 - 99.0 09-21-2012 Alb[facility] Ve [facility]ma [facility] Temperature [degF] 09:37-0400 [address] [facility] (25990) ( ) Body 98.2 [degF] (no code) 97.8 - 99.0 04-10-2012 Alb[facility]ma [facility] Temperature [degF] 11:470500 [address] [facility] (09930) ( ) Body 98 [degF] (no code) 97.8 - 99.0 01-10-2012 Albino Verm a [facility] Temperature [degF] 09:54-0400 [address] [facility] ([id number]) ( ) Body 97.9 [degF] (no code) 97.8 - 99.0 11-08-2011 Alb[facility] Ve [facility]ma [facility] Temperature [degF] 09:55-0400 [address] [facility] (82161) ( ) Body 97.8 [degF] (no code) 97.8 - 99.0 07-08-2011 Albino Ve rma [facility] Temperature [degF] 11:070500 [address] [facility] (20237) ( ) Body 97.2 [degF] (no code) 97.8 - 99.0 05-27-2011 Albino Ve rma [facility] Temperature [degF] 10:010500 [address] [facility] (01401) ( ) Body 97.6 [degF] (no code) 97.8 - 99.0 03-18-2011 Alb[facility] Ve [facility]ma [facility] Temperature [degF] 09:32-0500 [address] [facility] (46152) ( ) Body 97.6 [degF] (no code) 97.8 - 99.0 02-22-2011 Albino Ve rma [facility] Temperature [degF] 12:47-0400 [address] [facility] (78894) ( ) Body 97.8 [degF] (no code) 97.8 - 99.0 01-25-2011 Albino Ve rma [facility] Temperature [degF] 10:53-0400 [address] [facility] (50310) ( ) Body 97.7 [degF] (no code) 97.8 - 99.0 12-28-2010 Alb[facility] Ve [facility]ma [facility] Temperature [degF] 09:24-0400 [address] [facility] (97936) ( ) Body 97.4 [degF] (no code) 97.8 - 99.0 11-23-2010 Albino Ve [facility]ma [facility] Temperature [degF] 09:46-0400 [address] [facility] (97575) ( ) Body 97.6 [degF] (no code) 97.8 - 99.0 10-26-2010 Alb[facility] Ve [facility]ma [facility] Temperature [degF] 10:34-0400 [address] [facility] (76279) ( ) Body 98.1 [degF] (no code) 97.8 - 99.0 10-02-2009 Alb[facility] Ve [facility]ma [facility] Temperature [degF] 13:54-0400 [address] [facility] (19569) ( ) Body 99.1 [degF] (no code) 97.8 - 99.0 09-24-2009 Albino Ve rma [facility] Temperature [degF] 09:090400 [address] [facility] (31559) ( ) Body 98.6 [degF] (no code) 97.8 - 99.0 09-21-2009 Albino Ve rma [facility] Temperature [degF] 10:32-0400 [address] [facility] (07470) ( ) Body 97.6 [degF] (no code) 97.8 - 99.0 09-18-2009 Alb[facility] Ve [facility]ma [facility] Temperature [degF] 15:270400 [address] [facility] (32433) ( ) Body weight 130.41 kg (no code) kg 10-23-2018 Albino Verm a [facility] 12:00-0400 [address] [facility] (49719) ( ) Body weight 134.72 kg (no code) kg 08-22-2018 Albino Verm a [facility] 13:22-0400 [address] [facility] (03219) ( ) Body weight 117.94 kg (no code) kg 06-01-2016 Albino Verm a [facility] 15:40-0500 [address] [facility] (42956) ( ) Body weight 124.29 kg (no code) kg 03-19-2013 Albino Verm a [facility] 16:13-0500 [address] [facility] (96986) ( ) Body weight 127.46 kg (no code) kg 11-27-2012 Albino Verm a [facility] 10:37-0400 [address] [facility] (90421) ( ) Body weight 128.82 kg (no code) kg 09-21-2012 Albino Verm a [facility] 09:37-0400 [address] [facility] (91733) ( ) Body weight 130.18 kg (no code) kg 04-10-2012 Albino Verm a [facility] 11:47-0500 [address] [facility] (07154) ( ) Body weight 134.41 kg (no code) kg 01-10-2012 Albino Verm a [facility] 09:54-0400 [address] [facility] (30243) ( ) Body weight 133.36 kg (no code) kg 11-08-2011 Albino Verm a [facility] 09:55-0400 [address] [facility] (93421) ( ) Body weight 133.36 kg (no code) kg 07-08-2011 Albino Verm a [facility] 11:070500 [address] [facility] (87371) ( ) Body weight 130.18 kg (no code) kg 05-27-2011 Albino Verm a [facility] 10:010500 [address] [facility] (91829) ( ) Body weight 136.08 kg (no code) kg 03-18-2011 Albino Verm a [facility] 09:32-0500 [address] [facility] (36809) ( ) Body weight 133.87 kg (no code) kg 01-25-2011 Albino Verm a [facility] 10:53-0400 [address] [facility] (68575) ( ) Body weight 135.17 kg (no code) kg 12-28-2010 Albino Verm a [facility] 09:24 [address] [facility] (39356) ( ) Body weight 135.63 kg (no code) kg 10-26-2010 Albino Verm a [facility] 10:340400 [address] [facility] (94191) ( ) Body weight 115.33 kg (no code) kg 10-12-2009 Albino Verm a [facility] 11:09 [address] [facility] (46647) ( ) Body weight 114.36 kg (no code) kg 10-02-2009 Albino Verm a [facility] 13:54-0400 [address] [facility] (16975) ( ) Body weight 112.95 kg (no code) kg 09-24-2009 Albino Verm a [facility] 09:09 [address] [facility] (94440) ( ) Body weight 113.85 kg (no code) kg 09-21-2009 Albino Verm a [facility] 10:320400 [address] [facility] (90089) ( ) Body weight 113.4 kg (no code) kg 09-18-2009 Albino Motley [facility] 15:27-0400 [address] [facility] (16656) ( ) Blood Pressure 112/ (no code) Systolic: 90 - 10-23-2018 Aadi yadira Motley [facility] 74mm[Hg] 120 mm[Hg] 12: [address] [facility] (21250) Diastolic: 60 (Work Phone: - 80 mm[Hg] ) Blood Pressure 140/ (no code) Systolic: 90 - 08-22-2019 Aadi yadira Motley [facility] 80mm[Hg] 120 mm[Hg] 13:22-0400 [address] [facility] (14137) Diastolic: 60 (Work Phone: - 80 mm[Hg] ) Blood Pressure 156/ (no code) Systolic: 06-01-2016 Aadi yadira Motley [facility] 84mm[Hg] 120 mm[Hg] 15:40-0500 [address] [facility] (24246) Diastolic: 60 (Work Phone: - 80 mm[Hg] ) Blood Pressure 132/ (no code) Systolic: 03-19-2013 Aadi yadira Motley [facility] 84mm[Hg] 120 mm[Hg] 16:13-0500 [address] [facility] (87763) Diastolic: 60 (Work Phone: - 80 mm[Hg] ) Blood Pressure 155/ (no code) Systolic: 12-14-2012 Aadi yadira Motley [facility] 110mm[Hg] 120 mm[Hg] 11:23-0400 [address] [facility] (47497) Diastolic: 60 (Work Phone: - 80 mm[Hg] ) Blood Pressure 140/ (no code) Systolic: 11-27-2012 Aadi yadira Motley [facility] 104mm[Hg] 120 mm[Hg] 10:37-0400 [address] [facility] (75200) Diastolic: 60 (Work Phone: - 80 mm[Hg] ) Blood Pressure 138/ (no code) Systolic: 09-21-2012 Aadi yadira Motley [facility] 94mm[Hg] 120 mm[Hg] 09:37-0400 [address] [facility] ([id number]) Diastolic: 60 (Work Phone: - 80 mm[Hg] ) Blood Pressure 152/ (no code) Systolic: 04-10-2012 Aadi yadira Motley [facility] 100mm[Hg] 120 mm[Hg] 11:47-0500 [address] [facility] ([id number]) Diastolic: 60 (Work Phone: - 80 mm[Hg] ) Blood Pressure 146/ (no code) Systolic: 01-10-2012 Aadi yadira Motley [facility] 96mm[Hg] 120 mm[Hg] 09:54-0400 [address] [facility] (49043) Diastolic: 60 (Work Phone: - 80 mm[Hg] ) Blood Pressure 144/ (no code) Systolic: 11-08-2011 Aadi yadira Motley [facility] 90mm[Hg] 120 mm[Hg] 09:55-0400 [address] [facility] ([id number]) Diastolic: 60 (Work Phone: - 80 mm[Hg] ) Blood Pressure 146/ (no code) Systolic: 07-08-2011 Aadi yadira Motley [facility] 90mm[Hg] 120 mm[Hg] 11:07-0500 [address] [facility] (78994) Diastolic: 60 (Work Phone: - 80 mm[Hg] ) Blood Pressure 152/ (no code) Systolic: 05-27-2011 Aadi yadira Motley [facility] 94mm[Hg] 120 mm[Hg] 10:01-0500 [address] [facility] ([id number]) Diastolic: 60 (Work Phone: - 80 mm[Hg] ) Blood Pressure 138/ (no code) Systolic: 03-18-2011 Aadi yadira Motley [facility] 96mm[Hg] 120 mm[Hg] 09:32-0500 [address] [facility] ([id number]) Diastolic: 60 (Work Phone: - 80 mm[Hg] ) Blood Pressure 148/ (no code) Systolic: 02-22-2011 Aadi yadira Motley [facility] 102mm[Hg] 120 mm[Hg] 12:47-0400 [address] [facility] ([id number]) Diastolic: 60 (Work Phone: - 80 mm[Hg] ) Blood Pressure 152/ (no code) Systolic: 01-25-2011 Aadi yadira Motley [facility] 98mm[Hg] 120 mm[Hg] 10:53-0400 [address] [facility] (54716) Diastolic: 60 (Work Phone: - 80 mm[Hg] ) Blood Pressure 162/ (no code) Systolic: 12-28-2010 Aadi yadira Motley [facility] 94mm[Hg] 120 mm[Hg] 09:24040 [address] [facility] (56602) Diastolic: 60 (Work Phone: - 80 mm[Hg] ) Blood Pressure 152/ (no code) Systolic: 11-23-2010 Aadi yadira Motley [facility] 84mm[Hg] 120 mm[Hg] 09:46-0400 [address] [facility] (15790) Diastolic: 60 (Work Phone: - 80 mm[Hg] ) Blood Pressure 164/ (no code) Systolic: 10-26-2010 Aadi yadira Motley [facility] 100mm[Hg] 120 mm[Hg] 10:34-0400 [address] [facility] ([id number]) Diastolic: 60 (Work Phone: - 80 mm[Hg] ) Blood Pressure 160/ (no code) Systolic: 10-12-2009 Aadi yadira Motley [facility] 100mm[Hg] 120 mm[Hg] 11:090 [address] [facility] (17400) Diastolic: 60 (Work Phone: - 80 mm[Hg] ) Blood Pressure 164/ (no code) Systolic: 10-02-2009 Aadi yadira Motley [facility] 84mm[Hg] 120 mm[Hg] 14:240400 [address] [facility] (50944) Diastolic: 60 (Work Phone: - 80 mm[Hg] ) Blood Pressure 170/ (no code) Systolic: 10-02-2009 Aadi yadira Motley [facility] 110mm[Hg] 120 mm[Hg] 13:54-0400 [address] [facility] (78640) Diastolic: 60 (Work Phone: - 80 mm[Hg] ) Blood Pressure 130/ (no code) Systolic: 09-24-2009 Aadi yadira [employer] 90mm[Hg] 120 mm[Hg] 09:56-0400 [address] [facility] (90045) Diastolic: 60 (Work Phone: - 80 mm[Hg] ) Blood Pressure 150/ (no code) Systolic: 09-24-2009 Aadi yadira [employer] 100mm[Hg] 120 mm[Hg] 09:09040 [address] [facility] (34157) Diastolic: 60 (Work Phone: - 80 mm[Hg] ) Blood Pressure 154/ (no code) Systolic: 09-21-2009 Aadi ATEM[facility] 100mm[Hg] 120 mm[Hg] 10:32-0400 [address] [facility] (85139) Diastolic: 60 (Work Phone: - 80 mm[Hg] ) Blood Pressure 152/ (no code) Systolic: 09-18-2009 Aadi yadira [employer] 104mm[Hg] 120 mm[Hg] 15:27-0400 [address] [facility] (49768) Diastolic: 60 (Work Phone: - 80 mm[Hg] ) BSA (Body 2.46 m2 (no code) m2 10-23-2018 [facility]) 12:00-0400 [address] [facility] (17897) ( ) BSA (Body 2.5 m2 (no code) m2 08-22-2018 [facility] Surface [facility]) 13:22-0400 [address] [facility] ([id number]) ( ) BSA (Body 2.36 m2 (no code) m2 06-01-2016 [facility]) 15:40-0500 [address] [facility] (53447) ( ) BSA (Body 2.42 m2 (no code) m2 03-19-2013 [facility]) 16:13-0500 [address] [facility] ([id number]) ( ) BSA (Body 2.45 m2 (no code) m2 11-27-2012 [facility]) 10:37-0400 [address] [facility] (87406) ( ) BSA (Body 2.47 m2 (no code) m2 09-21-2012 [facility]) 09:37-0400 [address] [facility] (68124) ( ) BSA (Body 2.42 m2 (no code) m2 04-10-2012 [facility]) 11:47-0500 [address] [facility] (78313) ( ) BSA (Body 2.46 m2 (no code) m2 [facility]-10-2012 [facility] 09:54-0400 [address] [facility] (66536) ( ) BSA (Body 2.45 m2 (no code) m2 11-08-2011 [facility]) 09:55-0400 [address] [facility] (57421) ( ) BSA (Body 2.45 m2 (no code) m2 07-08-2011 [facility]) 11:07-0500 [address] [facility] (63593) ( ) BSA (Body 2.42 m2 (no code) m2 05-27-2011 [facility] 10:01-0500 [address] [facility] (91138) ( ) Height 167.64 cm (no code) cm 10-23-2018 [facility] 12:00-0400 [address] [facility] ([id number]) ( ) Height 167.64 cm (no code) cm 08-22-2018 [facility] 13:22-0400 [address] [facility] (23300) ( ) Height 170.18 cm (no code) cm 06-01-2016 [facility] 15:40-0500 [address] [facility] (43396) ( ) Height 170.18 cm (no code) cm 03-19-2013 [facility] 16:13-0500 [address] [facility] ([id number]) ( ) Height 170.18 cm (no code) cm 12-14-2012 [facility] 11:23-0400 [address] [facility] (30736) ( ) Height 170.18 cm (no code) cm 11-27-2012 [facility] 10:37-0400 [address] [facility] (81849) ( ) Height 170.18 cm (no code) cm 09-21-2012 [facility] 09:37-0400 [address] [facility] (08081) ( ) Height 162.56 cm (no code) cm 04-10-2012 [facility] 11:47-0500 [address] [facility] (28783) ( ) Height 162.56 cm (no code) cm 01-10-2012 [facility] 09:54-0400 [address] [facility] (13105) ( ) Height 162.56 cm (no code) cm 11-08-2011 Albino Motley [facility] 09:55-0400 [address] [facility] (23031) ( ) Height 162.56 cm (no code) cm 07-08-2011 Albino Motley [facility] 11:07-0500 [address] [facility] (80076) ( ) Height 162.56 cm (no code) cm 05-27-2011 Albino Motley [facility] 10:01-0500 [address] [facility] (52063) ( ) Pulse (Heart 89 /min (no code) 60 - 100 /min 10-23-2018 Albino Motley [facility] Rate) 12:00-0400 [address] [facility] (61261) ( ) Pulse (Heart 78 /min (no code) 60 - 100 /min 08-22-2018 Albino Motley [facility] Rate) 13:22-0400 [address] [facility] (24731) ( ) Pulse (Heart 108 /min (no code) 60 - 100 /min 06-01-2016 Albino Motley [facility] Rate) 15:40-0500 [address] [facility] (09021) ( ) Pulse (Heart 88 /min (no code) 60 - 100 /min 03-19-2013 Albino Motley [facility] Rate) 16:13-0500 [address] [facility] (15225) ( ) Pulse (Heart 60 /min (no code) 60 - 100 /min 12-14-2012 Albino Motley [facility] Rate) 11:23-0400 [address] [facility] (76523) ( ) Pulse (Heart 76 /min (no code) 60 - 100 /min 11-27-2012 Albino Mot[facility]) 10:[phone] [facility] ([id number]) ( ) Pulse (Heart 84 /min (no code) 60 - 100 /min 09-21-2012 Albino Mot[facility] Rate) 09:37-0400 [phone] [facility] ([id number]) ( ) Pulse (Heart 68 /min (no code) 60 - 100 /min 04-10-2012 Albino Mot[facility]) 11:47-0500 [phone] [facility] ([id number]) ( ) Pulse (Heart 74 /min (no code) 60 - 100 /min 01-10-2012 Albino Mot[facility]) 09:54-0400 [phone] [facility] ([id number]) ( ) Pulse (Heart 82 /min (no code) 60 - 100 /min 11-08-2011 Albino Molte[facility] Rate) 09:55-0400 [phone] [facility] ([id number]) ( ) Pulse (Heart 80 /min (no code) 60 - 100 /min 07-08-2011 Albino Mot[facility] Rate) 11:07-0500 [phone] [facility] ([id number]) ( ) Pulse (Heart 76 /min (no code) 60 - 100 /min 05-27-2011 Albino Mot[facility] Rate) 10:01-0500 [phone] [facility] ([id number]) ( ) Pulse (Heart 86 /min (no code) 60 - 100 /min 03-18-2011 Albino Motley [facility] Rate) 09:[phone] [facility] ([id number]) ( ) Pulse (Heart 82 /min (no code) 60 - 100 /min 02-22-2011 Albino Mot[facility] Rate) 12:47-0400 [phone] [facility] ([id number]) ( ) Pulse (Heart 84 /min (no code) 60 - 100 /min 01-25-2011 Albino Mot[facility] Rate) 10:53-0400 [phone] [facility] ([id number]) ( ) Pulse (Heart 78 /min (no code) 60 - 100 /min 12-28-2010 Albino Motley [facility] Rate) 09:24-0400 [phone] [facility] ([id number]) ( ) Pulse (Heart 80 /min (no code) 60 - 100 /min 11-23-2010 Albino Motley [facility] Rate) 09:46-0400 [phone] [facility] ([id number]) ( ) Pulse (Heart 78 /min (no code) 60 - 100 /min 10-26-2010 Albino Motley [facility] Rate) 10:34-0400 [phone] [facility] ([id number]) ( ) Pulse (Heart 84 /min (no code) 60 - 100 /min 10-02-2009 Albino Motley [facility] Rate) 13:[phone] [facility] ([id number]) ( ) Pulse (Heart 88 /min (no code) 60 - 100 /min 09-24-2009 Albino Motley [facility] Rate) 09:09-0400 [phone] [facility] ([id number]) ( ) Pulse (Heart 88 /min (no code) 60 - 100 /min 09-21-2009 Albino Motley [facility] Rate) 10:[phone] [facility] ([id number]) ( ) Pulse (Heart 94 /min (no code) 60 - 100 /min 09-18-2009 Albino Motley [facility] Rate) 15:[phone] [facility] ([id number]) ( ) Pulse Oximetry 98 % (no code) 95 - 100 % 10-23-2018 Albino Motley [facility] 12:[phone] [facility] ([id number]) ( ) Pulse Oximetry 90 % (no code) 95 - 100 % 08-22-2018 Albino Motley [facility] 13:[phone] [facility] ([id number]) ( ) Pulse Oximetry 97 % (no code) 95 - 100 % 06-01-2016 Albino Motley [facility] 15:[phone] [facility] ([id number]) ( ) Respiratory 20 /min (no code) 12 - 20 /min 10-23-2018 Albino V aleyda [facility] Rate 12:[phone] [facility] ([id number]) ( ) Respiratory 16 /min (no code) 12 - 20 /min 08-22-2018 Albino V aleyda [facility] Rate 13:22-0400 [phone] [facility] ([id number]) ( ) Respiratory 20 /min (no code) 12 - 20 /min 06-01-2016 Albino V aleyda [facility] Rate 15:40-0500 [address] [facility] ([id number]) ( ) Respiratory 20 /min (no code) 12 - 20 /min 03-19-2013 Albino V aleyda [facility] Rate 16:13-0500 [phone] [facility] ([id number]) ( ) Respiratory 16 /min (no code) 12 - 20 /min 12-14-2012 Albino V aleyda [facility] Rate 11:23-0400 [address] [facility] ([id number]) ( ) Respiratory 16 /min (no code) 12 - 20 /min 09-21-2012 Albino V aleyda [facility] Rate 09:37-0400 [phone] [facility] ([id number]) ( ) Respiratory 16 /min (no code) 12 - 20 /min 04-10-2012 Albino V aleyda [facility] Rate 11:47-0500 [address] [facility] ([id number]) ( ) Respiratory 16 /min (no code) 12 - 20 /min 01-10-2012 Albino V aleyda [facility] Rate 09:[phone] [facility] ([id number]) ( ) Respiratory 16 /min (no code) 12 - 20 /min 11-08-2011 Albino V aleyda [facility] Rate 09:[phone] [facility] ([id number]) ( ) Respiratory 16 /min (no code) 12 - 20 /min 07-08-2011 Albino V aleyda [facility] Rate 11:[phone] [facility] ([id number]) ( ) Respiratory 16 /min (no code) 12 - 20 /min 05-27-2011 Albino V aleyda [facility] Rate 10:[phone] [facility] ([id number]) ( ) Respiratory 16 /min (no code) 12 - 20 /min 03-18-2011 Albino V aleyda [facility] Rate 09:[phone] [facility] ([id number]) ( ) Respiratory 16 /min (no code) 12 - 20 /min 02-22-2011 Albino V aleyda [facility] Rate 12:47-0400 [phone] [facility] ([id number]) ( ) Respiratory 16 /min (no code) 12 - 20 /min 01-25-2011 Albino V aleyda [facility] Rate 10:53-0400 [phone] [facility] ([id number]) ( ) Respiratory 16 /min (no code) 12 - 20 /min 12-28-2010 Albino V aleyda [facility] Rate 09:[phone] [facility] ([id number]) ( ) Respiratory 16 /min (no code) 12 - 20 /min 11-23-2010 Albino V aleyda [facility] Rate 09:46-0400 [phone] [facility] ([id number]) ( ) Respiratory 16 /min (no code) 12 - 20 /min 10-26-2010 Albino V aleyda [facility] Rate 10:[phone] [facility] ([id number]) ( ) Respiratory 16 /min (no code) 12 - 20 /min 10-02-2009 Albino V aleyda [facility] Rate 13:[phone] [facility] ([id number]) ( ) Respiratory 20 /min (no code) 12 - 20 /min 09-24-2009 Labino V aleyda [facility] Rate 09:09-0400 [phone] [facility] ([id number]) ( ) Respiratory 20 /min (no code) 12 - 20 /min 09-21-2009 Albino V aleyda [facility] Rate 10:32-0400 [phone] [facility] ([id number]) ( ) Respiratory 20 /min (no code) 12 - 20 /min 09-18-2009 Albino V aleyda [facility] Rate 15:[phone] [facility] ([id number]) ( ) Interventions No Information Plan of Treatment Normalized Care Care Detail Care Activity Date Care Provider F acility Activity Patient Education Acute Bronchitis, no information GIA ETIENNE [id number] [place] [address] [facility] ([id number]) Patient referral no information no information GIA ETIENNE [phone] [facility] ([id number]) Goals Patient Goal Desired Goal no information no information Social History Normalized Code Original Code Date Value no information no information no information no information no information no information Never smoker no information no information 03-04-2019 Denies Use no information no information 03-04-2019 No no information no information 03-04-2019 Denies no information no information 03-04-2019 Never a Smoker Sex Assigned At Sex Assigned At no information M magdi Functional Status The data below is from unstructured sourcesNo functional status information available.Unknown or Not Available.No Functional Status information availableNo Functional Status information available Mental Status The data below is from unstructured sourcesNo Mental Status Information Available Encounters Encounter Normalized Encounter Encounter Diagnosis Care Provi kaitlin Organization Date Type 03-04-2019 Emergency department no information (no phone) [facility] Emergency Department - patient visit Hospital (no phone) 03-04-2019 03-03-2019 Emergency department no information no name no organization name - patient visit 03-03-2019 07-06-2017 Emergency department no information no name no organization name - patient visit 07-07-2017 07-06-2017 Hospital no information Adam Arteaga (no [facility] - [facility] phone) (no phone) 02-07-2016 Hospital no information Swapna Ahuja Other [facility] Emergency Department (no phone) 10-02-2009 Laboratory no information [facility]ariusz A Raissa [facility] ([facility]) 09-18-2009 Laboratory no information Mariusz A Raissa Other [facility] [employer] [facility] Office (no phone) 10-23-2018 Office outpatient new no information Albino Motley Other [facility] (no 45 minutes phone) 05-31-2016 Office outpatient no information Swapna Ahuja clinic (no visit 15 minutes phone) 07-06-2017 Patient encounter no information no name no or ganization name - 07-07-2017 06-19-2017 Patient encounter no information no name no or ganization name - 06-19-2017 Patient encounter no information no name no organizat ion name 09-05-2019 Patient encounter no information (no phone) [facility] (no phone) 04-25-2019 Patient encounter no information no name no or ganization name procedure 03-20-2019 Patient encounter no information no name no or ganization name procedure 03-02-2019 Patient encounter no information no name no or ganization name procedure 01-21-2019 Patient encounter no information no name no or ganization name procedure 01-21-2019 Patient encounter no information no name no or ganization name procedure 08-22-2018 Patient encounter no information Giageneva Etienne [facility] (no procedure phone) 07-03-2018 Patient encounter no information Gia V Lowell Ot er [facility] Etienne [facility] (no procedure phone) 03-13-2018 Patient encounter no information Gia V Lowell Ot er [facility] Etienne [facility] (no - procedure phone) 03-13-2018 - 03-13-2018 10-17-2017 Patient encounter no information Gia Etienne Ot [facility] Etienne [facility] (no procedure phone) 07-17-2017 Patient encounter no information Gia V Lowell Ot er [facility] Etienne [facility] (no procedure phone) 07-28-2016 Patient encounter no information no name no or ganization name - procedure 07-28-2016 12-11-2015 Patient encounter no information no name no or ganization name procedure 12-11-2015 Patient encounter no information no name no or ganization name procedure 11-16-2015 Patient encounter no information no name no or ganization name - procedure 11-16-2015 11-16-2015 Patient encounter no information no name no or ganization name - procedure 11-16-2015 03-19-2013 Patient encounter no information Virginia Jimenez [facility] (no procedure phone) 12-14-2012 Patient encounter no information Carin Duncan r [facility] (no procedure phone) 11-27-2012 Patient encounter no information Ruel Triana Ot her [facility] (no procedure phone) 09-21-2012 Patient encounter no information Ruel Triana Ot her [facility] (no procedure phone) 04-10-2012 Patient encounter no information Ruel Triana Ot her [facility] (no procedure phone) 01-10-2012 Patient encounter no information Ruel Triana Ot [facility] (no procedure phone) 11-08-2011 Patient encounter no information Ruel Triana Ot her [facility] (no procedure phone) 07-08-2011 Patient encounter no information Ruel Triana Ot her [facility] (no procedure phone) 05-27-2011 Patient encounter no information Ruel Triana [facility] (no procedure phone) 03-18-2011 Patient encounter no information Ruel Triana Ot her [facility] (no procedure phone) 02-22-2011 Patient encounter no information Ruel Triana Ot her [facility] (no procedure phone) 01-25-2011 Patient encounter no information Ruel Triana Ot her [facility] (no procedure phone) 12-28-2010 Patient encounter no information Ruel Triana Ot her [facility] (no procedure phone) 11-23-2010 Patient encounter no information Ruel Triana Ot her [facility] (no procedure phone) 10-26-2010 Patient encounter no information Ruel Triana Ot her [facility] (no procedure phone) 10-12-2009 Patient encounter no information Gia Etienne [facility] procedure (no phone) 10-02-2009 Patient encounter no information Kristie Lua [facility] procedure (no phone) 09-24-2009 Patient encounter no information Lindsay Sheffield Other [facility] procedure (no phone) 09-18-2009 Patient encounter no information Lindsay Sheffield Other [facility] procedure (no phone) 11-29-2012 Procedures no information Virginia Dhillon Other Phys iatry Clinic (no phone) 02-17-2011 Procedures no information Ruel Jimenez P [facility]iatry Clinic (no phone) 07-23-2018 Voided no information Gia Vargasr (no Test Clinic (no phone) phone) 09-21-2009 Voided no information Lindsay Sheffield Other [facility] (no phone) Medical Equipment The data below is from unstructured sourcesNo Medical Equipment Information available Payers Normalized Payer Value Unknown no information ([id number]) Evaluation note Note Type Note Facility Evaluation No Assessments Information Available A [facility] note [facility] ([id number]) Advance Directives Advance Directive Response Recorded Date/Time Advance Directives No No [email or web address] 11:04pm Resuscitation Status Full Code March 03, 2019 11:04pm Discharge Instructions You were admitted to [facility] on 10/25/2014 with a principal diagnosis of SPRAIN ELBOW FOREARM NOS. You were discharged from [facility] on 10/25/2014. Should you have any questions prior to discharge, please contact a member of your healthcare team. If you have left the hospital and have any questions, please contact your primary care physician. Chief Complaint and Reason for Visit Chief Complaint Cough/Cold/Flu Sympt oms Reason for Visit [id number] Additional Source Comments This clinical document has been generated using [employer] software that has been certified by the Office of the National Coordinator for Health Information Technology (ONC 15.99.04.3023.Diam.31.00.0.973456) and the National Committee for Auto Rep[employer] Shop Manager (NCQA, as an eMeasure certified technology). FOR RECORDS PERTAINING TO PATIENTS WHO ARE OR HAVE BEEN ENROLLED IN A CHEMICAL D EPENDENCY/SUBSTANCE ABUSE PROGRAM, SOME INFORMATION MAY BE OMITTED. This clinica l summary was aggregated from multiple sources. Caution should be exercised in using it in the provision of clinical care. This summary normalizes information from multiple sources, and as a consequence, information in this document may ma terially change the coding, format and clinical context of patient data. In arcenio tion, data may be omitted in some cases. CLINICAL DECISIONS SHOULD BE BASED ON T HE PRIMARY CLINICAL RECORDS. [facility]. provides no warranty or guara ntee of the accuracy or completeness of information in this document.The followi ng information is based on time limited clinical information
--- OUTSIDE RECORDS SUMMARY | 2019-09-19 01:50 | XMS REPORT | CCD ---
Author Author ARGELIA WEAVER Organization Unknown Address [address] [place] [address] Care Team Providers Care Online Marketing Analyst Name Role Phone KIARA MORTON, SWAPNA Mckeon Attphys MATILDE JOSE DO Prisurg Allergies Allergy Code Allergy Type Reaction Status No Known Drug Allergies 0 Drug allergy Active Active Medications Unknown or Not Available. Problems Unknown or Not Available. Procedures Procedure Code Procedure Type Date Intubation endotracheal emergency procedure 02848 CPT 02/07/2016 CT MAXILLOFACIAL W/O CONTRAST [id number] [facility] 02/07/2016 CULTURE BLOOD [id number] [facility] 02/07/2016 COMPREHENSIVE METABOLIC PANEL [id number] [facility] 02/07/2016 C REACTIVE PROTEIN [id number] [facility] 016 CBC W/ AUTO DIFF (RFLX MAN DIFF IF IND) [id number] [facility] 02/07/2016 TECH ASSIST HOURLY [id number] [facility] 016 VENTILATOR MGNT INITIAL DAY [id number] [facility] 02/07/2016 TECH ASSIST HOURLY [id number] [facility] 016 ^CBC W/ MANUAL DIFF [id number] [facility] 2015 OXYGEN/HOUR [id number] [facility] 02/07/2016 Results COMPREHENSIVE METABOLIC PANEL - Collect Date/Time: 02/07/2016 13:10 Test Name Code Test Result Test Units Jenny t Ref Range GLUCOSE 2345-7 108 MG/DL L=70 H=1 00 SODIUM 2951-2 134 MEQ/L L=135 H=14 8 POTASSIUM 2823-3 4.5 MEQ/L L=3.5 H =5.3 CHLORIDE 2075-0 97 MEQ/L L=96 H= 110 CO2 2028-9 18 MEQ/L L=22 H=29 BUN 3094-0 29 MG/DL L=8 H=22 CREATININE 2160-0 1.0 MG/DL L=0.6 H=1.6 SGOT/AST 1920-8 19 IU/L L=10 H= 40 SGPT/ALT 1742-6 21 IU/L L=8 H= 54 ALK PHOS 6768-6 103 IU/L L=35 H= 115 TOTAL PROTEIN 2885-2 8.0 G/DL L=5.5 H=8.5 ALBUMIN 1751-7 4.2 G/DL L=3.1 H=5 .4 TOTAL BILI 1975-2 2.9 MG/DL L=0.0 H=1.5 CALCIUM 29706-4 10.1 MG/DL L=8.2 H= 10.6 AGE 30 yrs GFR NonAA 89 GFR AA 108 eGFR >60 N/A eGFR AA* >60 N/A CBC W/ AUTO DIFF (RFLX MAN DIFF IF IND) - Collect Date/Time: 02/07/2016 13:10 Test Name Code Test Result Test Units Jenny t Ref Range WBC 00101-9 28.3 TH/CMM L=4.5 H=1 0.8 RBC 789-8 5.58 ML/CMM L=4.70 H=6. 10 HGB 718-7 16.1 G/DL L=14.0 H=18 .0 HCT 4544-3 46.8 % L=42.0 H=52 .0 MCV 84 FL L=81 H=99 MCH 28.9 PG L=27.0 H=33 .0 MCHC 34.4 G/DL L=31.0 H=36 .0 RDW SD 38 FL L=36 H=50 RDW CV 12.6 % L=0.0 H=14 .8 MPV 11.3 FL L=9.3 H=12 .5 PLT 777-3 206 TH/CMM L=130 H=44 0 NRBC# 0.00 TH/CMM L=0.00 H=0. 00 NRBC% 0.0 /100WBC L=0.0 H=2 .0 %NEUT 86.1 % %LYMP 3.0 % %MONO 9.6 % %EOS 0.0 % %BASO 0.2 % #NEUT 24.34 TH/CMM L=2.10 H=8. 20 #LYMP 0.84 TH/CMM L=0.90 H=5. 20 #MONO 2.72 TH/CMM L=0.16 H=1. 00 #EOS 0.00 TH/CMM L=0.00 H=0. 80 #BASO 0.07 TH/CMM L=0.00 H=0. 20 SEGS 70 % BANDS 20 % LYMPHS 2 % MONOS 8 % MANUAL DIFF SEE BELOW N/A C REACTIVE PROTEIN - Collect Date/Time: 02/07/2016 13:10 Test Name Code Test Result Test Units Jenny t Ref Range C REACTIVE PROTEIN 1987- 38.9 MG/DL L=0 .0 H=1.0 Function Status Unknown or Not Available. History of Immunizations Unknown or Not Available. Plan of Treatment Unknown or Not Available. Social History Smoking Status Code Start Date End Date Never smoker [id number] Vital Signs Unknown or Not Available. Function Status Unknown or Not Available. Goals Unknown or Not Available. ASSESSMENTS Unknown or Not Available. Health Concerns Section Unknown or Not Available.
--- OUTSIDE RECORDS SUMMARY | 2019-09-19 01:51 | XMS REPORT | Continuity of Care Document ---
Demographics Preferred Language Unknown Marital Status Unknown Congregational Affiliation Unknown Race Unknown Ethnic Group Unknown Author Organization Unknown Address Unknown Phone Unavailable Allergies Active Description Code Type Severity Reaction Onset Reported/Identified Relationship to Patient Clinical Status Yes No Known Drug Allergies [id number] N/A N/A Yes No Allergy Information Available G6203 13107 Drug Allergy Unknown N/A 019 Medications There is no data. Problems Date Dx Coded Attending Type Code Diagnosis Diagnosed By 11/16/2015 LOWELL DO, GIA V Ot G47. 33 OBSTRUCTIVE SLEEP APNEA (ADULT) (PEDIATR 12/02/2015 LOWELL DO, GIA V Ot G47. 33 OBSTRUCTIVE SLEEP APNEA (ADULT) (PEDIATR 12/15/2015 LOWELL DO, GIA V Ot G47. 33 OBSTRUCTIVE SLEEP APNEA (ADULT) (PEDIATR 12/25/2015 LOWELL DO, GIA V Ot G47. 33 OBSTRUCTIVE SLEEP APNEA (ADULT) (PEDIATR 07/28/2016 LOWELL DO, GIA V Ot G47. 33 OBSTRUCTIVE SLEEP APNEA (ADULT) (PEDIATR 07/28/2016 LOWELL DO, GIA V Ot G47. 33 OBSTRUCTIVE SLEEP APNEA (ADULT) (PEDIATR 07/29/2016 LOWELL DO, GIA V Ot G47. 33 OBSTRUCTIVE SLEEP APNEA (ADULT) (PEDIATR 03/04/2019 LOEWLL DO, GIA V Ot G47. 33 OBSTRUCTIVE SLEEP APNEA (ADULT) (PEDIATR Procedures There is no data. Results Test Result Range LIPID PANEL - 01/21/19 10:43 CHOLESTEROL, TOTAL 192 mg/dL <200 HDL CHOLESTEROL 32 mg/dL >40 TRIGLYCERIDES 111 mg/dL <150 LDL-CHOLESTEROL 137 mg/dL (calc) NR CHOL/HDLC RATIO 6.0 (calc) <5.0 NON HDL CHOLESTEROL 160 mg/dL (calc) <13 0 Influenza virus A and B antigen detectio n - 03/03/19 23:11 FLU RESULT NEGATIVE FOR INFLUENZA A AND B ANTIGENS BY IA NRG [facility] - 04/25/19 15:53 GLUCOSE 85 mg/dL 65-99 UREA NITROGEN (BUN) 13 mg/dL 7-25 CREATININE 0.92 mg/dL 0.60-1.35 eGFR NON-AFR. [place] 110 mL/min/1.73m2 > OR = 60 eGFR 127 mL/min/1.73m2 > OR = 60 BUN/CREATININE RATIO NOT APPLICABLE (calc) 6-22 SODIUM 136 mmol/L 135-146 POTASSIUM 4.3 mmol/L 3.5-5.3 CHLORIDE 103 mmol/L 98-110 CARBON DIOXIDE 23 mmol/L 20-32 CALCIUM 9.8 mg/dL 8.6-10.3 Encounters ACCT No. Visit Date/Time Discharge Status Pt. Type Provider Facility Loc./Unit Complaint [id number] 06/22/2018 08:51:31 Document Registration [id number] 03/13/2018 14:25:37 Document Registration [id number] 07/06/2017 23:24:12 Document Registration [id number] 07/06/2017 23:17:05 Document Registration [id number] 06/19/2017 12:56:50 Document Registration [id number] 09/05/2019 14:20:00 09/05/2019 23:59: 59 CLS Outpatient [facility] [id number] 04/25/2019 15:00:00 Document Registration [id number] 01/21/2019 09:40:00 Document Registration [id number] 10/23/2018 11:51:05 10/23/2018 23:59: 59 CLS Outpatient Albino Motley [id number] 08/22/2018 10:42:23 08/22/2018 23:59: 59 CLS Outpatient Lowell, Gia V [id number] 07/23/2018 16:41:31 07/23/2018 23:59: 59 CLS Outpatient Lowell, Gia V [id number] 07/03/2018 10:23:52 07/03/2018 23:59: 59 CLS Outpatient Lowell, Gia V [id number] 03/13/2018 14:46:13 03/13/2018 23:59: 59 CLS Outpatient Lowell, Gia V [id number] 10/17/2017 14:53:37 10/17/2017 23:59: 59 CLS Outpatient Lowell, Gai V [id number] 07/21/2017 16:05:57 07/21/2017 23:59: 59 CLS Outpatient Adam Arteaga [id number] 07/17/2017 11:19:59 07/17/2017 23:59: 59 CLS Outpatient Lowell, Gia V [id number] 05/31/2016 16:11:29 05/31/2016 23:59: 59 CLS Outpatient Fazal Ahuja [id number] 02/29/2016 18:21:05 02/29/2016 23:59: 59 CLS Outpatient Fazal Ahuja [id number] 03/03/2019 22:46:00 019 00:46:00 DIS Emergency LINDSEY DOBISHNU Vi a [facility] ER SOA [id number] 07/28/2016 12:50:00 017 14:48:00 DIS Outpatient LOWELL GIA DAVIDSON V [facility] SLEEP WILLIE [id number] 12/11/2015 20:50:00 016 23:59:59 CLS Outpatient LOWELL GIA DAVIDSON V [facility] SLEEP WILLIE,SNORING,HTN [id number] 11/16/2015 10:14:00 016 10:46:00 DIS Outpatient LOWELL GIA DAVIDSON V [facility] SLEEP SNORING,HPN,INSOMNIA,ED S
--- OUTSIDE RECORDS SUMMARY | 2019-09-19 01:51 | XMS REPORT ---
Author Author Miles Ahuja Organization [facility] Address [address] [place], [place] [address] Care Team Providers Care Puncher Name Role Phone Fazal Ahuja PCP Unavailable Bonifacio Etienne V PreferredProvider Unavailable Allergies and Adverse Reactions Name Reaction Notes NO KNOWN DRUG ALLERGIES Plan of Treatment Planned Activity Comments Planned Date Planned Time Plan/Goal CT ABD AND PELVIS W/WO CONTRAST 06/01/2016 12:00 AM Medications Active Name Start Date Estimated Completion Date SIG Co mments lisinopril 20 mg oral tablet sara e 1 tablet (20 mg) by oral route twice a day oxycodone-acetaminophen 5-325 mg oral tablet take 1 tablet by oral route every 4 hours as needed Wellbutrin SR 100 mg oral tablet extended release take 1 tablet by oral route 3 times a day tramadol 50 mg oral tablet take 2 tablets by oral route 3 times a day lovastatin 20 mg oral tablet saar e 1 tablet (20 mg) by oral route once daily with the evening meal diclofenac sodium 35 mg oral TID cyclobenzaprine 10 mg oral tablet take 1 tablet (10 mg) by oral route 2 times per day atenolol 25 mg oral tablet take 1 tablet (25 mg) by oral route once daily Name Start Date Expiration Date SIG Comments baclofen 10 mg oral tablet 08/08/2011 09/08/2011 TAKE ONE-HALF TABLET BY MOUTH THREE TIMES DAILY FOR 3 DAYS THEN ONE TABLET THREE TIMES DAILY Voltaren 1 % topical gel 11/08/2011 03/07/2012 apply 4 gram to the affected area(s) by topical route 4 times per day for 30 days baclofen 10 mg oral tablet 08/08/2011 09/08/2011 TAKE ONE-HALF TABLET BY MOUTH THREE TIMES DAILY FOR 3 DAYS THEN ONE TABLET THREE TIMES DAILY tizanidine 4 mg oral capsule 04/19/2012 06/27/2012 sara e 1 capsule (4 mg) by oral route for 30 days meloxicam 15 mg oral tablet 07/09/2012 09/21/2012 take 1 tablet (15 mg) by oral route daily for 30 days methocarbamol 750 mg oral tablet 09/21/2012 01/19/2013 gabapentin 100 mg oral capsule 03/19/2013 04/18/2013 t ann 1 capsule by oral route 2 times a day for 30 days Discontinued Name Start Date Discontinued Date SIG Comments clonidine HCl 0.1 mg oral tablet 10/12/2009 take 1 tablet by oral route 1X in clinic office Fish Oil 1,000 mg oral capsule 10/12/2009 t ann 1 capsule by oral route QD , keep refrigerated Multivitamin Oral Capsule 10/12/2009 take 1 capsule by oral route once daily Zestoretic 20-25 mg oral tablet 10/02/2009 10/12/2009 take 1 tablet by oral route once daily for 60 days Aspir-81 81 mg oral tablet,delayed release (DR/EC) 10/19/2010 take 1 tablet (81 mg) by oral route once daily lisinopril 20 mg oral tablet 10/18/2009 10/19/2010 sara e 1 tablet by oral route every 12 hours naproxen sodium 550 mg oral tablet 01/31/2011 take 1 tablet (550 mg) by oral route daily Pennsaid 1.5 % topical drops 03/19/2013 edson ly 40 drops to each knee by topical route 4 times per day cyclobenzaprine 10 mg oral tablet 10/26/2010 take 1 tablet (10 mg) by oral route 2 times per day ibuprofen 800 mg oral tablet 02/01/2011 sara e 1 tablet (800 mg) by oral route 2 times per day with food Valium 2 mg oral tablet 11/21/2011 01/04/2012 1-2 tabs po q 8 h rs/PRN pain Norflex 100 mg 06/27/2012 07/05/2012 1 tab po BID diclofenac sodium 75 mg oral tablet,delayed release (DR/EC) 12/14/2012 03/19/2013 take 1 tablet (75 mg) by oral route 2 times per day tramadol 50 mg oral tablet 06/01/2016 take 2 tablets by oral route 3 times a day Tylenol PM Extra Strength 25-500 mg oral tablet 06/01/2016 take 2 tablets by oral route once daily at bedtime as needed cyclobenzaprine 10 mg oral tablet 02/20/2015 06/01/2016 take 1 tablet (10 mg) by oral route 2 times per day for 30 days Problem List Description Status Onset Cerebral Palsy Active Hypertension Active Contracture deformities Active Depression Active Hypercholesterolemia Active Vital Signs Date Time BP-Sys(mm[Hg] BP-Jennifer(mm[Hg]) HR(bpm) RR(rpm) Temp WT HT HC BMI BSA BMI Percentile O2 Sat(%) 06/01/2016 2:40:00 PM 156 mmHg 84 mmHg 108 bpm 20 rpm 97 F 260 lbs 67 in 40.72 kg/m2 2.36 m2 97 % 03/19/2013 3:13:00 PM 132 mmHg 84 mmHg 88 bpm 20 rpm 98.7 F 274 lbs 67 in 42.914 kg/m 2.4239 m 12/14/2012 10:23:00 AM 155 mmHg 110 mmHg 60 bpm 16 rpm 97.6 F 67 in 11/27/2012 9:37:00 AM 140 mmHg 104 mmHg 76 bpm 98.1 F 281 lbs 67 in 44.0104 kg/m 2.4547 m 09/21/2012 8:37:00 AM 138 mmHg 94 mmHg 84 bpm 16 rpm 97.1 F 284 lbs 67 in 44.48 kg/m2 2.47 m2 04/10/2012 10:47:00 AM 152 mmHg 100 mmHg 68 bpm 16 rpm 98.2 F 287 lbs 64 i n 49.2629 kg/m 2.4245 m 01/10/2012 8:54:00 AM 146 mmHg 96 mmHg 74 bpm 16 rpm 98 F 296.312 lbs 64 i n 50.86 kg/m2 2.46 m2 11/08/2011 8:55:00 AM 144 mmHg 90 mmHg 82 bpm 16 rpm 97.9 F 294 lbs 64 in 50.4645 kg/m 2.4539 m 07/08/2011 10:07:00 AM 146 mmHg 90 mmHg 80 bpm 16 rpm 97.8 F 294 lbs 64 in 50.46 kg/m2 2.45 m2 05/27/2011 9:01:00 AM 152 mmHg 94 mmHg 76 bpm 16 rpm 97.2 F 287 lbs 64 in 49.2629 kg/m 2.4245 m 03/18/2011 8:32:00 AM 138 mmHg 96 mmHg 86 bpm 16 rpm 97.6 F 300 lbs 02/22/2011 11:47:00 AM 148 mmHg 102 mmHg 82 bpm 16 rpm 97.6 F 01/25/2011 9:53:00 AM 152 mmHg 98 mmHg 84 bpm 16 rpm 97.8 F 295.125 lbs 12/28/2010 8:24:00 AM 162 mmHg 94 mmHg 78 bpm 16 rpm 97.7 F 298 lbs 11/23/2010 8:46:00 AM 152 mmHg 84 mmHg 80 bpm 16 rpm 97.4 F 10/26/2010 9:34:00 AM 164 mmHg 100 mmHg 78 bpm 16 rpm 97.6 F 299 lbs 10/12/2009 10:09:00 AM 160 mmHg 100 mmHg 254.25 lbs 10/02/2009 1:24:00 PM 164 mmHg 84 mmHg 10/02/2009 12:54:00 PM 170 mmHg 110 mmHg 84 bpm 16 rpm 98.1 F 252.125 lbs 09/24/2009 8:56:00 AM 130 mmHg 90 mmHg 09/24/2009 8:09:00 AM 150 mmHg 100 mmHg 88 bpm 20 rpm 99.1 F 249 lbs 09/21/2009 9:32:00 AM 154 mmHg 100 mmHg 88 bpm 20 rpm 98.6 F 251 lbs 09/18/2009 2:27:00 PM 152 mmHg 104 mmHg 94 bpm 20 rpm 97.6 F 250 lbs Social History Name Description Comments denies alcohol use lives at home Single lives with girlfriend in a house Living with significant other with 3 mon th old child High school graduate Did not serve in Tobacco Never smoker History of Procedures Date Ordered Description Order Status 02/17/2011 12:00 AM Botulinum Toxin (Botox), Type A (per uni t) Reviewed 02/17/2011 12:00 AM GUIDE NERV DESTR NEEDLE EMG Reviewed 02/17/2011 12:00 AM CHEMODENERVATION OF MUSCLE(S ); EXTREMITY(S) AND/OR TRUNK MUSCLE( Reviewed 11/29/2012 12:00 AM MUSC TST DONE W/NERV TST ALVARADO Reviewed 11/29/2012 12:00 AM NRV CNDJ TEST 9-10 STUDIES Reviewed 12/14/2012 12:00 AM COMPREHEN METABOLIC PANEL Reviewed 09/18/2009 12:00 AM ROUTINE VENIPUNCTURE Reviewed 09/18/2009 12:00 AM COMPLETE CBC W/AUTO DIFF WBC Reviewed 09/18/2009 12:00 AM COMPREHEN METABOLIC PANEL Reviewed 09/18/2009 12:00 AM LIPID PANEL Reviewed 09/18/2009 12:00 AM ELECTROCARDIOGRAM COMPLETE Reviewed Results Summary Data and Description Results 02/28/2012 4:09 PM GLUCOSE 84.0 mg/dLSODIUM 137 .0 mmol/LPOTASSIUM 3.90 mmol/LCHLORIDE 102.0 mmol/LCO2 24.0 mmol/LBUN 15.0 mg/dLCREATININE 0.80 mg/dLSGOT/AST 25.0 IU/LSGPT/ALT 38.0 IU/LALK PHOS 109.0 IU/LTOTAL PROTEIN 8.20 g/dLALBUMIN 4.50 g/dLTOTAL BILI 0.50 mg/dLCALCIUM 10.0 mg/dLAGE 24 GFR NonAA 119 GFR AA 144 eGFR 60 eGFR AA* 60 02/22/2013 1:50 PM GLUCOSE 90.0 mg/dLSODIUM 136 .0 mmol/LPOTASSIUM 3.80 mmol/LCHLORIDE 102.0 mmol/LCO2 24.0 mmol/LBUN 12.0 mg/dLCREATININE 0.80 mg/dLSGOT/AST 25.0 IU/LSGPT/ALT 43.0 IU/LALK PHOS 90.0 IU/LTOTAL PROTEIN 8.10 g/dLALBUMIN 4.60 g/dLTOTAL BILI 0.80 mg/dLCALCIUM 9.90 mg/dLAGE 27 GFR NonAA 118 GFR AA 143 eGFR >60 mL/min/1.73 m2eGFR AA* >60 History Of Immunizations Not available. History of Past Illness Name Date of Onset Comments Cerebral Palsy Hypertension Contracture deformities lower extremity Hypertension Sep 18 2009 3:21PM Hypertension Sep 18 2009 3:29PM Hypertension Sep 18 2009 2:40PM Athetoid cerebral palsy Sep 18 2009 2:40PM Hypertension Sep 24 2009 8:17AM Gait Abnormality Sep 24 2009 8:17AM Fatigue Sep 24 2009 8:17AM Strabismus Sep 24 2009 8:17AM Joint Contracture Sep 24 2009 8:17AM Hypertension Oct 02 2009 12:57PM Essential Hypertension Oct 12 2009 10:10AM Depression Hypercholesterolemia Achilles bursitis or tendinitis Oct 26 2010 9:33AM Contracture of joint; lower leg Oct 26 2010 9:33AM Gait Abnormality Oct 26 2010 9:33AM Hemiplegia, Congenital Oct 26 2010 9:33AM Achilles bursitis or tendinitis Nov 23 2010 8:50AM Contracture of joint; lower leg Nov 23 2010 8:50AM Gait Abnormality Nov 23 2010 8:50AM Hemiplegia, Congenital Nov 23 2010 8:50AM Achilles bursitis or tendinitis Dec 28 2010 8:21AM Contracture of joint; lower leg Dec 28 2010 8:21AM Gait Abnormality Dec 28 2010 8:21AM Hemiplegia, Congenital Dec 28 2010 8:21AM Achilles bursitis or tendinitis Jan 25 2011 9:55AM Contracture of joint; lower leg Jan 25 2011 9:55AM Gait Abnormality Jan 25 2011 9:55AM Hemiplegia, Congenital Jan 25 2011 9:55AM Contracture of joint; lower leg Feb 17 2011 4:19PM Diplegia, Congenital Feb 17 2011 4:19PM Achilles bursitis or tendinitis Feb 22 2011 11:44AM Contracture of joint; lower leg Feb 22 2011 11:44AM Gait Abnormality Feb 22 2011 11:44AM Hemiplegia, Congenital Feb 22 2011 11:44AM Achilles bursitis or tendinitis Mar 18 2011 8:34AM Contracture of joint; lower leg Mar 18 2011 8:34AM Gait Abnormality Mar 18 2011 8:34AM Hemiplegia, Congenital Mar 18 2011 8:34AM Radiculopathy, lumbosacral May 27 2011 9:07AM Achilles bursitis or tendinitis May 27 2011 9:07AM Contracture of joint; lower leg May 27 2011 9:07AM Gait Abnormality May 27 2011 9:07AM Hemiplegia, Congenital May 27 2011 9:07AM Contracture of joint; lower leg Jul 08 2011 10:09AM Gait Abnormality Jul 08 2011 10:09AM Hemiplegia, Congenital Jul 08 2011 10:09AM Spondylosis, lumbar Jul 08 2011 10:09AM Spondylosis, lumbar Nov 08 2011 9:02AM Contracture of joint; lower leg Nov 08 2011 9:02AM Gait Abnormality Nov 08 2011 9:02AM Hemiplegia, Congenital Nov 08 2011 9:02AM Spondylosis, lumbar Jan 10 2012 8:56AM Contracture of joint; lower leg Jan 10 2012 8:56AM Gait Abnormality Jan 10 2012 8:56AM Hemiplegia, Congenital Jan 10 2012 8:56AM Spondylosis, lumbar Apr 10 2012 9:02AM Contracture of joint; lower leg Apr 10 2012 9:02AM Gait Abnormality Apr 10 2012 9:02AM Hemiplegia, Congenital Apr 10 2012 9:02AM Spondylosis, lumbar Sep 21 2012 8:39AM Contracture of joint; lower leg Sep 21 2012 8:39AM Gait Abnormality Sep 21 2012 8:39AM Hemiplegia, Congenital Sep 21 2012 8:39AM Contracture of joint; lower leg Nov 27 2012 9:38AM Gait Abnormality Nov 27 2012 9:38AM Hemiplegia, Congenital Nov 27 2012 9:38AM Carpal Tunnel Syndrome Nov 27 2012 9:38AM Contracture of joint; lower leg Dec 14 2012 10:25AM Gait Abnormality Dec 14 2012 10:25AM Hemiplegia, Congenital Dec 14 2012 10:25AM Carpal Tunnel Syndrome Dec 14 2012 10:25AM Hypertension Dec 14 2012 10:25AM Carpal Tunnel Syndrome Nov 29 2012 8:29AM Contracture of joint; lower leg Mar 19 2013 3:22PM Gait Abnormality Mar 19 2013 3:22PM Hemiplegia, Congenital Mar 19 2013 3:22PM Carpal Tunnel Syndrome Mar 19 2013 3:22PM Groin discomfort, left b 2016 2:41PM Groin discomfort, right b 2016 2:41PM Morbid (severe) obesity due to excess calories Jun 01 2016 2:41PM Body mass index (BMI) 40.0-44.9, adult Jun 01 2016 2:41PM Payers Insurance Name Company Name Plan Name Plan Number Policy Number Dave cy Group Number Start Date [facility] e Comm Plan of [id number] N/A [place] Medical Assistance [facility] nayeli Pro [id number] Friday, 2009 History of Encounters Visit Date Visit Type Provider 05/31/2016 Office visit Fazal Ahuja MD 02/07/2016 [facility] Fazal Ahuja MD 03/19/2013 Office visit Virginia Dhillon MD 12/14/2012 Office visit Carin CONNOLLYP 11/29/2012 Procedures Virginia Dhillon MD 11/27/2012 Office visit Ruel Triana MD 09/21/2012 Office visit Ruel Triana MD 04/10/2012 Office visit Ruel Triana MD 01/10/2012 Office visit Ruel Triana MD 11/08/2011 Office visit Ruel Triana MD 07/08/2011 Office visit Ruel Triana MD 05/27/2011 Office visit Ruel Triana MD 03/18/2011 Office visit Ruel Triana MD 02/22/2011 Office visit Ruel Triana MD 02/17/2011 Procedures Ruel Triana MD 01/25/2011 Office visit Ruel Triana MD 12/28/2010 Office visit Ruel Triana MD 11/23/2010 Office visit Ruel Triana MD 10/26/2010 Office visit Ruel Triana MD 10/12/2009 Office visit Bonifacio Etienne DO 10/02/2009 Laboratory Mariusz Haji MD 10/02/2009 Office visit Kristie NAGY 09/24/2009 Office visit Lindsay NAGY 09/21/2009 Voided Lindsay NAGY 09/18/2009 Office visit Lindsay NAGY 09/18/2009 Laboratory Mariusz Haji MD
--- OUTSIDE RECORDS SUMMARY | 2019-09-19 01:51 | XMS REPORT ---
Author Author Miles Motley Organization [facility] Address [address] [place], [place] [address] Care Team Providers Care Spring Fitter Helper Name Role Phone Albino Motley PCP Bonifacio Etienne V PreferredProvider Unavailable Allergies and Adverse Reactions Name Reaction Notes Duexis meloxicam diclofenac sodium bloody stools Plan of Treatment Not available. Medications Active Name Start Date Estimated Completion Date SIG Co mments cyclobenzaprine 10 mg oral tablet take 1 tablet (10 mg) by oral route 2 times per day baclofen 10 mg oral tablet 04/25/2018 take 1 tablet (10 mg) by oral route 3 times per day for 90 days lisinopril 20 mg oral tablet 06/29/2018 TAKE 1 TABLE T BY MOUTH TWICE DAILY paroxetine HCl 20 mg oral tablet 06/29/2018 TAKE 2 T ABLETS BY MOUTH ONCE DAILY atenolol 25 mg oral tablet 06/29/2018 TAKE 1 TABLET BY MOUTH ONCE DAILY lovastatin 20 mg oral tablet 07/04/2018 TAKE 1 TABLE T BY MOUTH ONCE DAILY Tylenol 325 mg oral capsule take 1 capsul e by oral route 3 times a day furosemide 80 mg oral tablet 10/02/2018 12/01/2018 SARA E 1 TABLET BY MOUTH ONCE DAILY NEEDED tramadol 50 mg oral tablet 10/29/2018 11/28/2018 take 2 tablets by oral route 3 times a day for 30 days omeprazole 20 mg oral capsule,delayed release(DR/EC) 11/06/2018 TAKE 1 CAPSULE BY MOUTH ONCE DAILY BEFORE A MEAL celecoxib 200 mg oral capsule 11/07/2018 12/07/2018 ta ke 1 capsule (200 mg) by oral route once daily for 30 days Carafate 1 gram oral tablet 11/07/2018 12/07/2018 take 1 tablet by oral route 4 times a day for 30 days Name Start Date Expiration Date SIG Comments [...] 2 times a day for 30 days prednisone 20 mg oral tablet 03/14/2018 04/05/2018 Sara e 3 tablets daily x 2 days, then 2 tablets daily x 5 days, 1 1/2 tablets daily x 5 days, 1 tablet daily x 5 days, 1/2 tablet daily x 5 days Lasix 80 mg oral tablet 08/22/2018 09/06/2018 take 1 t ablet (80 mg) by oral route once daily prn ondansetron 4 mg oral tablet,disintegrating 11/05/201811/12 Take 1-2 tablets prn nausea Discontinued Name Start Date Discontinued Date SIG [...] 2 times per day for 30 days oxycodone-acetaminophen 5-325 mg oral tablet 07/31 take 1 tablet by oral route every 4 hours as needed Wellbutrin SR 100 mg oral tablet extended release 08/22/2018 take 1 tablet by oral route 3 times a day diclofenac sodium 35 mg oral 08/22/2018 TID omeprazole 20 mg oral capsule,delayed release(DR/EC) 07/25/2017 08/22/2018 take 1 capsule (20 mg) by oral route once daily before a meal for 30 days hydroxyzine HCl 25 mg oral tablet 08/16/2018 08/22/2018 TAKE 3 TABLETS BY MOUTH AT BEDTIME Zorvolex 35 mg oral capsule 10/29/2018 take 1 capsule (35 mg) by oral route 3 times per day meloxicam 15 mg oral tablet 10/30/2018 11/07/2018 take 1 tablet (15 mg) by oral route once daily for 30 days Problem List Description Status Onset Cerebral Palsy Active Hypertension Active Contracture deformities Active Depression Active Hypercholesterolemia Active Vital Signs Date Time BP-Sys(mm[Hg] BP-Jennifer(mm[Hg]) HR(bpm) RR(rpm) Temp WT HT HC BMI BSA BMI Percentile O2 Sat(%) 10/23/2018 11:00:00 AM 112 mmHg 74 mmHg 89 bpm 20 rpm 98.2 F 287.5 lbs 66 i n 46.4032 kg/m 2.4643 m 98 % 08/22/2018 12:22:00 PM 140 mmHg 80 mmHg 78 bpm 16 rpm 97.6 F 297 lbs 66 in 47.94 kg/m2 2.50 m2 90 % 06/01/2016 2:40:00 PM 156 mmHg 84 mmHg 108 bpm 20 rpm 97 F 260 lbs 67 in 40.7213 kg/m 2.3611 m 97 % 03/19/2013 3:13:00 PM 132 mmHg 84 mmHg 88 bpm 20 rpm 98.7 F 274 lbs 67 in 42.91 kg/m2 2.42 m2 12/14/2012 10:23:00 AM 155 mmHg 110 mmHg [...] MUSCLE(S ); EXTREMITY(S) AND/OR TRUNK MUSCLE( Reviewed 06/01/2016 12:[address] ABD & PELV 1/> REGNS Returned 11/29/2012 12:00 AM MUSC TST DONE W/NERV TST ALVARADO Reviewed 11/29/2012 12:00 AM NRV CNDJ TEST 9-10 STUDIES Reviewed 12/14/2012 12:00 AM COMPREHEN METABOLIC PANEL Reviewed 09/18/2009 12:00 AM ROUTINE VENIPUNCTURE Reviewed 09/18/2009 12:00 AM COMPLETE CBC W/AUTO DIFF WBC Reviewed 09/18/2009 12:00 AM COMPREHEN METABOLIC PANEL Reviewed 09/18/2009 12:00 AM LIPID PANEL Reviewed 09/18/2009 12:00 AM ELECTROCARDIOGRAM COMPLETE Reviewed Results Summary Date and Description Results 02/22/2013 1:50 PM GLUCOSE 90.0 mg/dLSODIUM 136 [...] 8:34AM Hemiplegia, Congenital Mar 18 2011 8:34AM Obesity Anxiety Insomnia Neuropathy involving both lower extremities Edema bilateral lower extremities Radiculopathy, lumbosacral May 27 2011 9:07AM Achilles [...] (BMI) 40.0-44.9, adult Jun 01 2016 2:41PM Mechanical low back pain Oct 23 2018 11:08AM Chronic pain syndrome Oct 23 2018 11:08AM Hamstring tightness of both lower extremities Oct 23 2018 11 :08AM Payers Insurance Name Company Name Plan Name Plan Number Policy Number Dave cy Group Number Start Date [facility] e Comm Plan of [id number] N/A [place] Medical Assistance [facility] tan Pro [id number] Friday, 2009 History of Encounters Visit Date Visit Type Provider 10/23/2018 Office visit Albino Motley DO 08/22/2018 Office visit Bonifacio VDada Lowell DO 07/23/2018 Voided Bonifacio V. Lowell DO 07/03/2018 Office visit Bonifacio VDada Lowell DO 03/13/2018 Office visit Bonifacio VDada Lowell DO 10/17/2017 Office visit Bonifacio VDada Lowell DO 07/17/2017 Office visit Bonifacio VDada Lowell DO 07/06/2017 [facility] Adam Arteaga MD 05/31/2016 Office visit Fazal Ahuja MD 02/07/2016 Hospital Fazal Ahuja MD 03/19/2013 Office visit Virginia Dhillon MD 12/14/2012 Office visit Carin NAGY 11/29/2012 Procedures Virginia Dhillon MD 11/27/2012 Office [...]
--- OUTSIDE RECORDS SUMMARY | 2019-09-19 01:51 | XMS REPORT | CCD ---
Author Author ARGELIA CORADO Organization Unknown Address [address] [place] [address] Care Team Providers Care Carbonating Stone Cleaner Name Role Phone LUIS F HESTER MD Attphys LUIS F HESTER MD Prisurg [phone] Allergies Allergy Code Allergy Type Reaction Status No Known Drug Allergies 0 Drug allergy Active Active Medications Unknown or Not Available. Problems Unknown or Not Available. Procedures Unknown or Not Available. Results Unknown or Not Available. Encounters Encounter Diagnosis Diagnosis Code Start Date Open wound in mouth [id number] 02/20/2016 Function Status Unknown or Not Available. History of Immunizations Unknown or Not Available. Social History Smoking Status Code Start Date End Date Never smoker [id number] Vital Signs Unknown or Not Available. Function Status Unknown or Not Available. Goals Unknown or Not Available. ASSESSMENTS Unknown or Not Available. Health Concerns Section Unknown or Not Available.
--- OUTSIDE RECORDS SUMMARY | 2019-09-19 01:51 | XMS REPORT ---
Author Author Miles Motley Organization [facility] Address [address] [place], [place] [address] Care Team Providers Care Supervisor Char House Name Role Phone Albino Motley PCP Bonifacio Etienne V PreferredProvider Unavailable Allergies and Adverse Reactions Name Reaction Notes NO KNOWN DRUG ALLERGIES Plan of Treatment Not available. Medications Active [...] by oral route 3 times a day Zorvolex 35 mg oral capsule take 1 capsule (35 mg) by oral route 3 times per day tramadol 50 mg oral tablet 09/28/2018 10/28/2018 take 2 tablets by oral route 3 times a day for 30 days furosemide 80 mg oral tablet 10/02/2018 12/01/2018 SARA E 1 TABLET BY MOUTH ONCE DAILY NEEDED Name Start Date Expiration Date SIG Comments [...] mg) by oral route once daily prn Discontinued Name Start Date Discontinued Date SIG [...] TAKE 3 TABLETS BY MOUTH AT BEDTIME Problem List Description Status Onset Cerebral Palsy [...] left b 2016 2:41PM Groin discomfort, right Feb 2016 2:41PM Morbid (severe) obesity due to excess calories Jun 01 2016 2:41PM Body mass index (BMI) 40.0-44.9, adult Jun 01 2016 2:41PM Payers Insurance Name Company Name Plan Name Plan Number Policy Number Dave cy Group Number Start Date [facility] e Comm Plan of [id number] N/A [place] Medical Assistance [facility] Rafaelapril Funk [id number] Friday, 2009 History of Encounters Visit Date Visit Type Provider 10/23/2018 Office visit Albino Coxa DO 08/22/2018 Office visit Bonifacio V. Lowell DO 07/23/2018 Voided Bonifacio V. Lowell DO 07/03/2018 Office visit Bonifacio V. Lowell DO 03/13/2018 Office visit Bonifacio V. Lowell DO 10/17/2017 Office visit Bonifacio V. Lowell DO 07/17/2017 Office visit Bonifacio V. Lowell DO 07/06/2017 [facility] Adam Arteaga MD 05/31/2016 Office visit Fazal [...] Ruel Triana MD 10/12/2009 Office visit Bonifacio Vargasr DO 10/02/2009 Laboratory Mariusz Haji MD 10/02/2009 Office visit Kristie NAGY 09/24/2009 Office visit Lindsay NAGY 09/21/2009 Voided Lindsay NAGY 09/18/2009 Office visit Lindsay NAGY 09/18/2009 Laboratory Mariusz Haji MD
--- OUTSIDE RECORDS SUMMARY | 2019-09-19 01:51 | XMS REPORT | CCD ---
Author Author ARGELIA BERG Organization Unknown Address [address] [place] [address] Care Team Providers Care Electronic Page Makeup System Operator Name Role Phone LUIS F HESTER MD Attphys LUIS F HESTER MD Prisurg [phone] Allergies Allergy Code Allergy Type Reaction Status No Known Drug Allergies 0 Drug allergy Active Active Medications Unknown or Not Available. Problems Unknown or Not Available. Procedures Unknown or Not Available. Results Unknown or Not Available. Encounters Encounter Diagnosis Diagnosis Code Start Date Open wound in mouth [id number] 02/20/2016 Function Status Unknown or Not Available. History of Immunizations Unknown or Not Available. Social History Smoking Status Code Start Date End Date Never smoker [id number] Vital Signs Unknown or Not Available. Function Status Unknown or Not Available. Goals Unknown or Not Available. ASSESSMENTS Unknown or Not Available. Health Concerns Section Unknown or Not Available.
[2019-09-19] MEDS ORDERED: LABETALOL HCL 20 MG/4 ML VIAL IV ONE (02:15)
[2019-09-19 02:21] LABS: BASOPHILS % (AUTO) 0 % (0-10); BILIRUBIN,URINE NEGATIVE (NEGATIVE); CLARITY,URINE SL CLOUDY; COLOR,URINE YELLOW; EOSINOPHILS # (AUTO) 0.3 10^3/uL (0.0-0.3); EOSINOPHILS % (AUTO) 3 % (0-10); GLUCOSE, URINE (UA) NEGATIVE (NEGATIVE); HEMATOCRIT 47 % (40-54); HEMOGLOBIN 15.7 G/DL (13.3-17.7); KETONES,URINE NEGATIVE (NEGATIVE); LEUKOCYTE ESTERASE ,URINE NEGATIVE (NEGATIVE); LYMPHOCYTES # (AUTO) 3.1 X 10^3 (1.0-4.0); LYMPHOCYTES % (AUTO) 32 % (12-44); MEAN CORPUSCULAR HEMOGLOBIN 29 PG (25-34); MEAN CORPUSCULAR HGB CONC 34 G/DL (32-36); MEAN CORPUSCULAR VOLUME 86 FL (80-99); MEAN PLATELET VOLUME 11.4 FL (7.4-10.4); MONOCYTES # (AUTO) 1.1 X 10^3 (0.0-1.0); MONOCYTES % (AUTO) 11 % (0-12); NEUTROPHILS # (AUTO) 5.1 X 10^3 (1.8-7.8); NEUTROPHILS % (AUTO) 53 % (42-75); NITRITE,URINE NEGATIVE (NEGATIVE); PLATELET COUNT 231 10^3/uL (130-400); PROTEIN,URINE NEGATIVE (NEGATIVE); RED CELL DISTRIBUTION WIDTH 13.8 % (10.0-14.5); WHITE BLOOD COUNT 9.6 10^3/uL (4.3-11.0)
--- NOTE | 2019-09-19 02:22 | ED General ---
General Stated Complaint: SWELLING OF FEET & LEGS Source of Information: Patient History of Present Illness Date Seen by Provider: September 19, 2019 Time Seen by Provider: 02:00 Initial Comments PT ARRIVES VIA POV FROM HOME C/O BILATERAL LOWER LEG AND FEET SWELLING--CHRONIC PROBLEM FOR " A COUPLE OF YEARS" HAD BEEN PRESCRIBED MEDICATION FOR SWELLING AND HIGH BLOOD PRESSURE AND HIGH CHOLESTEROL IN THE PAST, BUT HAS NOT TAKEN ANY MEDICATIONS FOR " A COUPLE OF YEARS" STATES HE SAW CORRY GRANDA AT [facility] "LAST WEEK" AND WAS STARTED BACK ON MEDICATIONS--PER MED RECONCILIATION, PT WAS PRESCRIBED LISINOPRIL 40 MG, LOVASTATIN 20 MG, LASIX 80 MG, TOPROL XL 50 MG ON 09/05/19 STATES HE WENT THERE BECAUSE THE SWELLING HAD GOTTEN WORSE "A COUPLE OF DAYS BEFORE I SAW HIM" PT WAS ALSO GIVEN RX FOR HYDROCODONE 09/12/19 FOR FOOT AND LEG PAIN DUE TO SWELLING PT STATES HE TOOK A HYDROCODONE AT 1500 YESTERDAY HAS NOT TAKEN ANY OF IS MEDICATIONS TONIGHT. STATES HE HAS A FOLLOW UP APPOINTMENT AT [facility] "SOMETIME IN SEPTEMBER" NO CHEST PAIN NO SHORTNESS OF BREATH NO PALPITATIONS--HR IS 130 ON ARRIVAL--PT IS UNAWARE OF RAPID HEART BEAT NO FEVER/SWEATS/CHILLS NO DIZZINESS OR SYNCOPE NO NAUSEA/VOMITING OR ABDOMINAL PAIN VOIDING A NORMAL AMOUNT PCP: [facility] Allergies and Home Medications Allergies Coded Allergies: No Allergy Information Available (Unverified , 09/19/19) Patient Home Medication List Home Medication List Reviewed: Yes Review of Systems Review of Systems Constitutional: no symptoms reported; No chills, No diaphoresis, No dizziness, No fever EENTM: no symptoms reported Respiratory: no symptoms reported; No cough, No dyspnea on exertion, No orthopnea, No short of breath, No wheezing Cardiovascular: see HPI; No chest pain; edema; No palpitations, No syncope Gastrointestinal: no symptoms reported; No abdominal pain, No nausea, No vomiting Genitourinary: no symptoms reported Musculoskeletal: see HPI Skin: no symptoms reported; No rash Psychiatric/Neurological: No Symptoms Reported; Denies Numbness, Denies Paresthesia, Denies Tingling, Denies Weakness Hematologic/Lymphatic: No Symptoms Reported Immunological/Allergic: no symptoms reported Past Qakgndb-Mvogsb-Xjzvsn Hx Past Med/Social Hx: Reviewed and Corrections made Patient Social History Alcohol Use: Denies Use Recreational Drug Use: No Smoking Status: Never a Smoker 2nd Hand Smoke Exposure: No Recent Foreign Travel: No Contact w/Someone Who Travel: No Recent Hopitalizations: No Immunizations Up To Date Tetanus Booster (TDap): Unknown PED Vaccines UTD: Yes Past Medical History Surgeries: Yes (TRACHEOSTOMY D/T STREP--LATER REMOVAL; UTILITY MECHANIC SHUNT) Neurological, Tracheostomy Respiratory: Yes (2016--HAD STREP AND WAS HOSPITALIZED AND HAD TEMPORARY TRACH. 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 ) Tonsilitis Cancer: No Psychosocial: No Integumentary: No Blood Disorders: No Physical Exam Vital Signs Vital Signs - First Documented 09/19/19 01:50 Temp 37.2 Pulse 124 Resp 20 B/P (MAP) 160/98 (118) Pulse Ox 97 O2 Delivery Room Air Capillary Refill : Height, Weight, BMI Height: '" Weight: lbs. oz. kg; 33.00 BMI Method: General Appearance: No Apparent Distress, Obese, Other (DIRTY, MALODOROUS, FEET HEAVILY CAKED WITH DIRT / DEBRIS / ANIMAL HAIR. DOES NOT APPEAR TO BE IN ANY DISCOMFORT OR DISTRESS. WALKS WITHOUT DIFFICULTY. PLAYING/TEXTING ON PHONE THROUGHOUT ENTIRE STAY. ) HEENT: PERRL/EOMI Neck: Full Range of Motion, Normal Inspection, Non Tender, Supple; No Carotid Bruit Respiratory: Normal Breath Sounds, No Accessory Muscle Use, No Respiratory Distress Cardiovascular: No JVD, No Murmur, Normal Peripheral Pulses, Tachycardia Gastrointestinal: No Organomegaly, Non Tender, Soft Back: No CVA Tenderness Extremity: Normal Capillary Refill, Normal Range of Motion, Non Tender, No Calf Tenderness, Pedal Edema (3+ EDEMA BILATERALLY , WITH ASSOCIATED FAINT ERYTHEMA TO BILATERAL LOWER LEGS AND FEET) Neurologic/Psychiatric: Alert, Oriented x3, No Motor/Sensory Deficits, Normal Mood/Affect, ink maker II-XII Norm as Tested Skin: Normal Color, Warm/Dry; No Petechia, No Rash Progress/Results/Core Measures Suspected Sepsis SIRS Temperature: Pulse: Respiratory Rate: Laboratory Tests 09/19/19 02:12: White Blood Count 9.6 Blood Pressure / Mean: Laboratory Tests 09/19/19 02:12: Creatinine 0.82, INR Comment 1.0, Platelet Count 231, Total Bilirubin 0.3 Results/Orders Lab Results Laboratory Tests Test 09/19/19 02:12 Range/Units White Blood Count 9.6 4.3-11.0 10^3/uL Red Blood Count 5.45 4.35-5.85 10^6/uL Hemoglobin 15.7 13.3-17.7 G/DL Hematocrit 47 40-54 % Mean Corpuscular Volume 86 80-99 FL Mean Corpuscular Hemoglobin 29 25-34 PG Mean Corpuscular Hemoglobin Concent 34 32-36 G/DL Red Cell Distribution Width 13.8 10.0-14.5 % Platelet Count 231 130-400 10^3/uL Mean Platelet Volume 11.4 H 7.4-10.4 FL Neutrophils (%) (Auto) 53 42-75 % Lymphocytes (%) (Auto) 32 12-44 % Monocytes (%) (Auto) 11 0-12 % Eosinophils (%) (Auto) 3 0-10 % Basophils (%) (Auto) 0 0-10 % Neutrophils # (Auto) 5.1 1.8-7.8 X 10^3 Lymphocytes # (Auto) 3.1 1.0-4.0 X 10^3 Monocytes # (Auto) 1.1 H 0.0-1.0 X 10^3 Eosinophils # (Auto) 0.3 0.0-0.3 10^3/uL Basophils # (Auto) 0.0 0.0-0.1 10^3/uL Prothrombin Time 13.7 12.2-14.7 SEC INR Comment 1.0 0.8-1.4 Activated Partial Thromboplast Time 27 24-35 SEC Urine Color YELLOW Urine Clarity SL CLOUDY Urine pH 6.0 5-9 Urine Specific Hye >=1.030 1.016-1.022 Urine Protein NEGATIVE NEGATIVE Urine Glucose (UA) NEGATIVE NEGATIVE Urine Ketones NEGATIVE NEGATIVE Urine Nitrite NEGATIVE NEGATIVE Urine Bilirubin NEGATIVE NEGATIVE Urine Urobilinogen 0.2 < = 1.0 MG/DL Urine Leukocyte Esterase NEGATIVE NEGATIVE Urine RBC (Auto) NEGATIVE NEGATIVE Urine RBC NONE /HPF Urine WBC RARE /HPF Urine Squamous Epithelial Cells RARE /HPF Urine Crystals NONE /LPF Urine Bacteria NEGATIVE /HPF Urine Casts NONE /LPF Urine Mucus NEGATIVE /LPF Urine Culture Indicated NO Sodium Level 137 135-145 MMOL/L Potassium Level 3.9 3.6-5.0 MMOL/L Chloride Level 104 98-107 MMOL/L Carbon Dioxide Level 22 21-32 MMOL/L Anion Gap 11 5-14 MMOL/L Blood Urea Nitrogen 13 7-18 MG/DL Creatinine 0.82 0.60-1.30 MG/DL Estimat Glomerular Filtration Rate > 60 BUN/Creatinine Ratio 16 Glucose Level 107 H 70-105 MG/DL Calcium Level 8.8 8.5-10.1 MG/DL Corrected Calcium 8.9 8.5-10.1 MG/DL Magnesium Level 2.0 1.6-2.4 MG/DL Total Bilirubin 0.3 0.1-1.0 MG/DL Aspartate Amino Transf (AST/SGOT) 19 5-34 U/L Alanine Aminotransferase (ALT/SGPT) 29 0-55 U/L Alkaline Phosphatase 86 40-136 U/L Troponin I < 0.028 <0.028 NG/ML B-Type Natriuretic Peptide < 10.0 <100.0 PG/ML Total Protein 6.9 6.4-8.2 GM/DL Albumin 3.9 3.2-4.5 GM/DL Urine Opiates Screen NEGATIVE NEGATIVE Urine Oxycodone Screen NEGATIVE NEGATIVE Urine Methadone Screen NEGATIVE NEGATIVE Urine Propoxyphene Screen NEGATIVE NEGATIVE Urine Barbiturates Screen NEGATIVE NEGATIVE Ur Tricyclic Antidepressants Screen NEGATIVE NEGATIVE Urine Phencyclidine Screen NEGATIVE NEGATIVE Urine Amphetamines Screen NEGATIVE NEGATIVE Urine Methamphetamines Screen NEGATIVE NEGATIVE Urine Benzodiazepines Screen NEGATIVE NEGATIVE Urine Cocaine Screen NEGATIVE NEGATIVE Urine Cannabinoids Screen NEGATIVE NEGATIVE My Orders Orders - BISHNU PORTILLO DO Ed Iv/Invasive Line Start (09/19/19 02:05) Ekg Tracing (09/19/19 02:05) Monitor-Rhythm Ecg Trace Only (09/19/19 02:05) BNP (09/19/19 02:05) Cbc With Automated Diff (09/19/19 02:05) Comprehensive Metabolic Panel (09/19/19 02:05) Drug Screen Stat (Urine) (09/19/19 02:05) Magnesium (09/19/19 02:05) Protime With Inr (09/19/19 02:05) Partial Thromboplastin Time (09/19/19 02:05) Ua Culture If Indicated (09/19/19 02:05) Troponin I (09/19/19 02:05) Chest Pa/Lat (2 View) (09/19/19 02:05) Labetalol Injection (Normodyne Injection (09/19/19 02:15) Ct Angio Chest W (09/19/19 02:43) Iohexol Injection (Omnipaque 350 Mg/Ml 1 (09/19/19 03:00) Received Contrast (Hold Metformin- Contr (09/19/19 03:00) Ns (Ivpb) (Sodium Chloride 0.9% Ivpb Bag (09/19/19 03:00) Furosemide Injection (Lasix Injection) (09/19/19 03:45) Potassium Chloride (Tablet) (K Dur Table (09/19/19 03:45) Medications Given in ED Current Medications Medications Dose Ordered Sig/Will Route Start Time Stop Time Status Last Admin Dose Admin Iohexol 125 ml ONCE ONCE IV 09/19/19 03:00 09/19/19 03:28 DC 09/19/19 03:17 125 ML Labetalol HCl 20 mg ONCE ONCE IV 09/19/19 02:15 09/19/19 02:16 DC 09/19/19 02:26 20 MG Sodium Chloride 80 ml ONCE ONCE IV 09/19/19 03:00 09/19/19 03:28 DC 09/19/19 03:17 80 ML Vital Signs/I&O 09/19/19 09/19/19 01:50 02:45 Temp 37.2 Pulse 124 103 Resp 20 20 B/P (MAP) 160/98 (118) 148/83 (104) Pulse Ox 97 100 O2 Delivery Room Air Capillary Refill : Progress Note : Progress Note GIVEN LABETALOL FOR TACHYCARDIA WELL ELEVATED BLOOD PRESSURE--BOTH LOWERED WITH LABETALOL UNEVENTFUL ER STAY ECG Initial ECG Impression Date: September 19, 2019 Initial ECG Impression Time: 02:18 Initial ECG Rate: 124 Initial ECG Rhythm: S.Tach Diagnostic Imaging Comments CXR--NO ACUTE PROCESS, UTILITY MECHANIC SHUNT IN PLACE, PENDING RADIOLOGIST REVIEW CT CHEST ANGIOGRAM--NO P.E. OR ACUTE PROCESS, [place] [facility] [place] [id number] Reviewed: Reviewed by Me Departure Impression Primary Impression: DEPENDENT LEG EDEMA Additional Impressions: HTN (hypertension) Sinus tachycardia Disposition: HOME, SELF-CARE Condition: Stable Departure-Patient Inst. Referrals: [facility] (PCP) Primary Care Physician RANDI GRANDA (Family) Primary Care Physician Patient Instructions: Controlling Your Blood Pressure Through Lifestyle, DASH Diet, Dependent Edema (DC), Heart Healthy Diet, High Blood Pressure (DC), Low Salt Diet, Tachycardia (DC) Add. Discharge Instructions: TAKE YOUR MEDICATIONS EXACTLY PRESCRIBED--DO NOT MISS DOSES ELEVATE LEGS MUCH POSSIBLE 2 GRAM SODIUM DIET, LOW FAT DIET FOLLOW UP WITH [facility] IN THE NEXT FEW DAYS FOR FURTHER CARE BISHNU PORTILLO DO September 19, 2019 02:22
[2019-09-19 02:30] LABS: BACTERIA,URINE NEGATIVE /HPF; SQUAMOUS EPITHELIAL CELL,UR RARE /HPF; WBC,URINE RARE /HPF
[2019-09-19 02:32] LABS: ALBUMIN 3.9 GM/DL (3.2-4.5); CHLORIDE 104 MMOL/L (98-107); POTASSIUM 3.9 MMOL/L (3.6-5.0); PROTHROMBIN TIME PATIENT 13.7 SEC (12.2-14.7); SODIUM 137 MMOL/L (135-145)
[2019-09-19 02:33] LABS: CALCIUM 8.8 MG/DL (8.5-10.1)
[2019-09-19 02:34] LABS: GLUCOSE 107 MG/DL (70-105)
[2019-09-19 02:35] LABS: AMPHETAMINE SCREEN, URINE NEGATIVE (NEGATIVE); BARBITURATE SCREEN URINE NEGATIVE (NEGATIVE); BENZODIAZEPINES SCREEN URINE NEGATIVE (NEGATIVE); CANNABINOID SCREEN, URINE NEGATIVE (NEGATIVE); COCAINE SCREEN URINE NEGATIVE (NEGATIVE); METHADONE STAT NEGATIVE (NEGATIVE); METHAMPHETAMINE SCREEN URINE S NEGATIVE (NEGATIVE); OPIATE SCREEN URINE NEGATIVE (NEGATIVE); OXYCODONE STAT NEGATIVE (NEGATIVE); PROPOXYPHENE STAT NEGATIVE (NEGATIVE); TOTAL PROTEIN 6.9 GM/DL (6.4-8.2); TRICYCLIC ANTIDEPRESSANTS SCRE NEGATIVE (NEGATIVE)
[2019-09-19 02:36] LABS: BILIRUBIN,TOTAL 0.3 MG/DL (0.1-1.0); CARBON DIOXIDE 22 MMOL/L (21-32)
[2019-09-19 02:38] LABS: ALKALINE PHOSPHATASE 86 U/L (40-136); CREATININE SERUM 0.82 MG/DL (0.60-1.30); GFR ESTIMATED > 60
[2019-09-19 02:39] LABS: BUN/CREATININE RATIO 16
[2019-09-19 02:41] LABS: ALANINE AMINOTRANSFERASE 29 U/L (0-55)
[2019-09-19] MEDS ORDERED: HYDR-4342 (02:41)
[2019-09-19] MEDS ORDERED: LOVA20TA2 (02:41)
[2019-09-19] MEDS ORDERED: METO50TA7 (02:41)
[2019-09-19] MEDS ORDERED: FURO80TA3 (02:41)
[2019-09-19] MEDS ORDERED: LISI40TA (02:41)
[2019-09-19 02:45] VITALS: BP 148/83
[2019-09-19] MEDS ORDERED: NS 100 ML (IVPB) BAG IV ONE (03:00)
[2019-09-19] MEDS ORDERED: HOLD METFORMIN - RECEIVED CONTRAST 20 ML VIAL IV SCH (03:00)
[2019-09-19] MEDS ORDERED: IOHEXOL 350 MG/ML 150 ML (OMNIPAQUE 350) VIAL IV ONE (03:00)
[2019-09-19] MEDS ORDERED: KCL 20 MEQ TAB (K-DUR) PO ONE (03:45)
[2019-09-19] MEDS ORDERED: FUROSEMIDE 40 MG/4 ML INJ (LASIX) IVP ONE (03:45)
[2019-09-19 04:09] VITALS: BP 155/86
--- NOTE | 2019-09-19 06:08 | Diagnostic Imaging Report ---
PROCEDURE: CT angiography Chest TECHNIQUE: After intravenous administration of contrast, thin section axial CT angiography of the chest was performed. 3D MIP reconstructions were made. All CT scans use one or more of the following dose optimizing techniques: automated exposure control, MA and/or KvP adjustment based on a patient size and exam type, or iterative reconstruction. INDICATION: Swelling of feet and legs. COMPARISON: None available. FINDINGS: Vasculature: No pulmonary emboli. No CT evidence of pulmonary hypertension or right ventricular strain. Thoracic aorta is normal in caliber. No aortic dissection or pseudoaneurysm. Heart and mediastinum: Visualized thyroid is normal. No supraclavicular, axillary, or intra-thoracic lymphadenopathy. The heart is normal in size without pericardial effusion. Pleura: No pleural effusion or pneumothorax. Lungs and airway: No endoluminal lesion in the trachea or central bronchi. No pulmonary mass, nodule or consolidation. Upper abdomen: Allowing for the phase of contrast, no acute abnormality in the upper abdomen is seen. Musculoskeletal: No concerning osseous lesion. IMPRESSION: 1. No acute cardiopulmonary process. Specifically, no pulmonary emboli or acute aortic syndrome. 2. Findings are in agreement with the preliminary report. Dictated by: Dictated on workstation # [id number]
--- NOTE | 2019-09-19 06:09 | Diagnostic Imaging Report ---
CHEST PA/LAT (2 VIEW) INDICATION: Swelling of hands and feet. COMPARISON: 03/03/2019 FINDINGS: No pulmonary mass or consolidation. No pleural effusion or pneumothorax. Normal heart size and mediastinal contours. Right-sided [employer] shunt catheter is noted. The shunt catheters fragmented within the lower aspect of the right neck, stable prior exam. IMPRESSION: 1. No acute cardiopulmonary process. 2. Stable fragmented and discontiguous [employer] catheter in the lower aspect of the right neck. Dictated by: Dictated on workstation # [id number]
== END 2019-09-19 04:03 | disposition home or self-care (01) ==
LOC: EDUNIT# 01:40 → ER 01:44
DX: R60.0 Localized edema (principal); I10 Essential (primary) hypertension; R00.0 Tachycardia, unspecified; G80.9 Cerebral palsy, unspecified; Z93.0 Tracheostomy status
CPT/HCPCS: 36415; 71046; 71275; 80053; 80306; 81000; 83735; 83880; 84484; 85025; 85610; 85730; 93005; 93041